=== PATIENT | male | born 1940 | race Caucasian/White ===

== ENCOUNTER → 2019-09-13 | Outpatient (CLI) | payer MEDICARE ==
--- NOTE | 2019-09-16 08:45 | US ---
EXAMINATION TYPE: US kidneys/renal and bladder DATE OF EXAM: 09/13/2019 COMPARISON: NONE CLINICAL HISTORY: Acute kidney failure, unspecified N17.9. RIVKA EXAM MEASUREMENTS: Right Kidney: 11.1 x 4.7 x 5.3 cm Left Kidney: 10.7 x 5.1 x 4.2 cm Post Void Residual Volume: 7.5 mL Right Kidney: Mild to moderate hydronephrosis. Left Kidney: Mild hydrodephrosis. Bladder: wnl Bilateral Jets seen: Yes Normal Post Void Residual: Yes No nephrolithiasis is seen. No masses are identified. The urinary bladder is anechoic. Bilateral ureteral jets are seen. IMPRESSION: Bilateral hydronephrosis right greater than left.
== END | disposition home or self-care (01) ==
LOC: RADUSWWP 10:52
PROVIDERS: ATTEND Internal Medicine Nephrology
DX: N13.30 Unspecified hydronephrosis (principal)
CPT/HCPCS: 76770

== ENCOUNTER → 2019-10-11 | Outpatient (CLI) | payer MEDICARE ==
--- NOTE | 2019-10-11 16:17 | CT ---
EXAMINATION TYPE: CT abdomen pelvis wo con DATE OF EXAM: 10/11/2019 COMPARISON: HISTORY: bilateral hydronephrosis CT DLP: 987 mGycm Examination of the solid and hollow viscera is limited given the lack of contrast. FINDINGS: LUNG BASES: No evidence for nodule. No evidence for infiltrate. LIVER/GB: The gallbladder is unremarkable. No space-occupying hepatic lesion. PANCREAS: No pancreatic mass identified. No inflammatory process seen. SPLEEN: No evidence for splenomegaly. No intrasplenic lesions seen. ADRENALS: No adrenal nodules identified. No evidence for thickening. KIDNEYS: Severe right-sided hydronephrosis secondary to a right UPJ calculus measuring 1.1 cm. Additi onal nonobstructing calculus lower pole right kidney measures 5 mm. There is moderate left-sided hydr onephrosis secondary to a left UPJ calculus measuring 1.2 cm. There is mild perinephric stranding and bilateral renal edema. Superimposed infection is difficult to exclude. Additional nonobstructing leni culi left kidney. BOWEL: Appendix has a normal appearance. No evidence of bowel obstruction. No inflammatory process. Lymph nodes: No evidence for adenopathy greater than 1 cm. Abdominal aorta: Atheromatous changes seen. No evidence for aneurysm. Genital organs: No significant abnormality. Other: No significant abnormality. IMPRESSION: 1. Bilateral hydronephrosis right greater than left secondary to UPJ calculi as discussed above.
== END | disposition home or self-care (01) ==
LOC: RADCTMAIN 15:40
PROVIDERS: ATTEND Urology
DX: N13.2 Hydronephrosis with renal and ureteral calculous obstruction (principal)
CPT/HCPCS: 74176

== ENCOUNTER → 2019-11-13 | Outpatient (CLI) | payer MEDICARE ==
[2019-11-13 09:31] LABS: Basophils # (A) 0.1 k/uL (0-0.2); Basophils % (A) 1 %; Eosinophils # (A) 0.1 k/uL (0-0.7); Eosinophils % (A) 3 %; HCT 46.9 % (39.0-53.0); HGB 14.9 gm/dL (13.0-17.5); Lymphocytes # (A) 1.7 k/uL (1.0-4.8); Lymphocytes % (A) 31 %; MCHC 31.9 g/dL (31.0-37.0); MCV 97.3 fL (80.0-100.0); Mean Platelet Volume 7.2; Monocytes # (A) 0.4 k/uL (0-1.0); Monocytes % (A) 7 %; Neutrophils # (A) 3.1 k/uL (1.3-7.7); Neutrophils % (A) 56 %; Platelet Count 232 k/uL (150-450); RBC 4.82 m/uL (4.30-5.90); RDW 12.7 % (11.5-15.5); WBC 5.5 k/uL (3.8-10.6)
[2019-11-13 09:42] LABS: INR 0.9 (<1.2)
[2019-11-13 09:43] LABS: Prothrombin Time 9.9 sec (9.0-12.0)
[2019-11-13 09:46] LABS: Calcium 9.5 mg/dL (8.4-10.2); Potassium 5.4 mmol/L (3.5-5.1)
== END | disposition home or self-care (01) ==
LOC: LABPAT 08:59
PROVIDERS: ATTEND Urology
DX: Z01.812 Encounter for preprocedural laboratory examination (principal); N20.0 Calculus of kidney; R31.29 Other microscopic hematuria; Z51.81 Encounter for therapeutic drug level monitoring; Z79.01 Long term (current) use of anticoagulants
CPT/HCPCS: 36415; 80048; 85025; 85610; 87086

== ENCOUNTER → 2019-11-14 | Outpatient (CLI) | payer MEDICARE | END | disposition home or self-care (01) | LOC: LABPAT 08:49 | PROVIDERS: ATTEND Anesthesiology | DX: Z01.818 Encounter for other preprocedural examination (principal) | CPT/HCPCS: 93005 ==

== ENCOUNTER 2019-11-20 06:07 | Observation (INO) | payer MEDICARE ==
[2019-11-13 10:32] VITALS: BMI 22.5
--- NOTE | 2019-11-19 16:44 | P.HPIHPCON ---
History of Present Illness H&P Date: 11/19/19 Chief Complaint: right sided ureteral calculi Mr. Pena is an 79 yo male with hx of right sided renal stone. She underwent a CT which showed a 18X10 mm stone in the proximal ureter and 4X5 mm stone in the lower pole. Of note the patient has a torturous proximal ureter. Making a ureteroscopy very challenging secondary to his anatomy. I discussed with him the option of percutaneous nephrolithotomy.. I discussed with him PCNL has the highest stone free rate but has highest complication risk. Discussed risk of bleeding and infection. Discussed risk of injury to nearby organ including liver,lung and bowel. also discussed risk from anesthesia which include but not limited to heart attack and stroke. He understood all the risk and agreed to proceed Consent for Procedure: I have explained the operation/procedure to the patient, including the risks, benefits, side effects, alternative therapies (including not receiving the proposed treatment or service), the likelihood of the patient achieving his/her goals, and potential recuperation problems for the procedure/sedation/analgesia, as well as any blood products, if indicated. I also explained to the patient the risks, benefits and side effects of the alternatives, as well as the risks related to not receiving the proposed procedure, care, treatment, or services. Past Medical History Past Medical History: Diabetes Mellitus, Hyperlipidemia, Osteoarthritis (OA), Prostate Disorder Additional Past Medical History / Comment(s): NEUROPATHY THERESA FEET, kidney stones, states sore left leg-hurt lifting a chilc History of Any Multi-Drug Resistant Organisms: None Reported Past Surgical History: Orthopedic Surgery, Tonsillectomy Additional Past Surgical History / Comment(s): RT FOOT SURGERY X2 (BONE REMOVED FOR INFECTION), THERESA CATARACTS . theresa nephrostolithotomy Past Anesthesia/Blood Transfusion Reactions: No Reported Reaction Smoking Status: Current every day smoker - Past Family History Sister(s) Family Medical History: Cancer Medications and Allergies Home Medications Medication Instructions Recorded Confirmed Type Multivitamins, Thera [Multivitamin] 1 tab PO DAILY 07/29/16 11/13/19 History RX: Aspirin 325 mg PO DAILY 07/29/16 11/13/19 History Simvastatin [Zocor] 20 mg PO HS 07/29/16 11/13/19 History glipiZIDE [Glucotrol] 5 mg PO TID-W/MEALS 07/29/16 11/13/19 History Insulin Glargine,Hum.rec.anlog 20 unit SQ HS 11/13/19 11/13/19 History [Franklyn Sinha] Allergies Allergy/AdvReac Type Severity Reaction Status Date / Time No Known Allergies Allergy Verified 11/13/19 10:22 Surgical - Exam - General well developed, well nourished, no distress, no pain - Respiratory normal expansion, normal respiratory effort - Abdomen Abdomen: soft, non tender, no distended - Psychiatric oriented to time, oriented to person, oriented to place Assessment and Plan Assessment: 79-year-old male, with a right-sided 18x10 mm proximal ureteral stone, and lower pole stone -OR for right-sided PCNL
[~2019-11-20 06:07] MED LIST: DEXAMETHASONE SOD PHOSPHATE 10 MG/ML 1 ML VIAL IV ONE; GENTAMICIN 120 MG in SODIUM CHLORIDE 0.9% 100 ML IVPB ONE; HYDROmorphone 0.5 MG/0.5 ML SYRINGE IVP PRN; LIDOCAINE 1% 20 ML VIAL (10MG/ML) FOR IV START INTRADERMA PRN; ONDANSETRON 4 MG/2 ML VIAL IVP ONE
--- NOTE | 2019-11-20 06:27 | XR ---
EXAMINATION TYPE: XR KUB DATE OF EXAM: 11/20/2019 COMPARISON: NONE HISTORY: Preop. Kidney stones. TECHNIQUE: 2 views FINDINGS: There are multiple calcifications over the kidneys. These measure up to 1.8 cm on the right side and 12 mm on the left side. There are bilateral ureteral stents. There is mild lumbar dextrosco liosis. Bowel gas pattern is normal. There is no evidence of free air. IMPRESSION: Multiple renal calculi. Nonacute abdomen.
[2019-11-20 06:55] LABS: Glucose,Whole Blood 158 mg/dL (75-99)
[2019-11-20] MEDS: LACTATED RINGERS 1,000 ML IV SCH (06:55)
[2019-11-20] MEDS ORDERED: SUCCINYLCHOLINE CHLORIDE 100 MG/5 ML SYR IV ONE (07:24)
[2019-11-20] MEDS ORDERED: PROPOFOL 10 MG/ML 20 ML VIAL IV ONE (07:24)
[2019-11-20] MEDS ORDERED: LIDOCAINE 1% INJ 10MG/ML (20 ML MDV) ONE (07:24)
[2019-11-20] MEDS ORDERED: MIDAZOLAM 2 MG/2 ML VIAL ONE (07:24)
[2019-11-20] MEDS ORDERED: fentaNYL (PF) 50 MCG/ML 2 ML AMP ONE (07:24)
[2019-11-20] MEDS ORDERED: IOPAMIDOL-370 50ML BTL MISCELLANE ONE (08:29)
[2019-11-20] MEDS ORDERED: LACTATED RINGERS 1,000 ML IV ONE ×3 (09:31→14:15)
[2019-11-20] MEDS ORDERED: MAG HYDROX/AL HYDROX/SIMETH 30 ML CUP PO PRN (11:16)
[2019-11-20] MEDS ORDERED: ACETAMINOPHEN TAB 325 MG TAB PO PRN (11:16)
[2019-11-20] MEDS ORDERED: ONDANSETRON 4 MG/2 ML VIAL IVP PRN (11:16)
[2019-11-20 11:35] LABS: Glucose,Whole Blood 114 mg/dL (75-99)
--- NOTE | 2019-11-20 14:13 | FL ---
EXAMINATION TYPE: FL Perc Nephrostomy New Access DATE OF EXAM: 11/20/2019 COMPARISON: CT 10/11/2019 HISTORY: Left ureteral calculus. PROCEDURE: Maximal barrier technique was utilized, hand hygiene obtained with soap and water and alcohol-based h and rub. The skin overlying the left kidney was localized using fluoroscopy and the overlying skin p repped and draped. Skin maria eugenia was made with a scalpel. Access was gained under fluoroscopy, following placement of a ureteral occlusion balloon by the referring clinician and instillation of air in the renal collecting system with a 21-gauge needle to the left kidney. A suitable posterior calyx was ch osen. A 0.018 inch wire was advanced. The access site was dilated , access site was upsized, safet y wire deployed and subsequently a sheath was advanced into the renal pelvis following dilation with balloon along the tract. The patient underwent nephrolithotomy by the referring clinician. The ministerio ent remained in stable condition without complication. The patient was discharged to observation in the care of anesthesia. 6 minutes 12 seconds fluoroscopy time, 2 intraoperative C-arm images document the procedure IMPRESSION: STATUS POST NEPHROSTOMY PLACEMENT FOR NEPHROLITHOTOMY WITH FLUOROSCOPIC GUIDANCE. THIS PROCEDURE PER FORMED BY THE UNDERSIGNED.
--- NOTE | 2019-11-20 15:54 | P.OP ---
Date of Procedure: 11/20/19 Preoperative Diagnosis: Left renal calculi Postoperative Diagnosis: Same Procedure(s) Performed: Left percutaneous nephrolithotomy, cystoscopy, left ureteral catheterization, antegrade nephrostogram, antegrade stent placement Implants: 4.8 Fr x 28 cm stent Anesthesia: ELIZABETHA Surgeon: Kristian Garcia Estimated Blood Loss (ml): 75 Pathology: other (left renal stone for analysis) Condition: stable Disposition: PACU Indications for Procedure: Mr. Pena is an 79 yo male with hx of bilateral nephrolithasis. He underwent a CT which showed a right sided 18X10 mm stone in the proximal ureter and 4X5 mm stone in the lower pole and left sided 1.1 cm proximal ureteral stone and 5 mm lower pole stone. Of note the patient has a torturous proximal ureter, and narrowing of the left UPJ. Making a ureteroscopy very challenging secondary to his anatomy. I discussed with him the option of percutaneous nephrolithotomy. I discussed with him PCNL has the highest stone free rate but has highest complication risk. Discussed risk of bleeding and infection. Discussed risk of injury to nearby organ including spleen, ,lung and bowel. also discussed risk from anesthesia which include but not limited to heart attack and stroke. He understood all the risk and agreed to proceed. We will proceed with left-sided PCNL today followed by right-sided PCNL in 6-8 weeks Operative Findings: Large stone in the renal pelvis, multiple smaller stone in the lower pole Description of Procedure: The patient was brought to the operating room, general anesthesia was induced. He was prepped and draped in sterile fashion and placed supine frog leg position. Cystoscopy. 22 sheath was inserted per urethra. The left ureteral orifice was visualized with the stent protruding from it. The stent was grasped and pulled to the meatus. Next a 0.035 sensor wire was advanced through the stent into the renal pelvis. The cystoscope was removed with wire in place. A 7 Fr baloon occluding catheter was passed over the wire and advanced to the renal pelvis, a pop catheter was placed in the bladder At this time the patient was placed in prone position, and prepped and draped in sterile fashion. the stones were visualized on fluoroscopy. At this time Dr Oro performed percutaneous access on the left kidney. Please see his dictation for his portion of procedure. Once access was obtained the The tract was dilated using the balloon dilators, Next a 30-Luxembourgish access sheath was advanced over the balloon. The balloon was removed with the sheath in place. Next a rigid nephroscope was inserted through the sheath and large stone was visualized in renal pelvis and multiple stones in the lower pole. The stone was broken up into smaller fragments using the ultrasound lithotripter. Stone fragments were removed using the grasper and sent for stone analysis. Repeat nephroscopy using the flexible cystoscope and the rigid nephroscope showed no additional fragments in the kidney. Using the flexible ureteroscope there were two fragments that measured approximately 1 mm at the UPJ, I attempted to pass the flexible ureteroscope past the narrowed UPJ but was unable to. I attempted to basket the stones but was not able to safely advance the basket past the narrowing. At this point the ureteroscope was withdrawn, and repeat nephroscopy demonstrated no injury to the UPJ. Repeat antegrade nephrostogram demonstrated no contrast extravasation or any additional filling defect. . Next a 4.8Fr x 28 cm stent was passed over the wire the distal curl was visualized on fluoroscopy in the bladder and the proximal curl was visualized using the nephroscope. The access sheath was removed. The percutaneous access site was closed using 3-0 Vicryl. The patient was awoken from anesthesia and taken to the recovery room in stable condition.
[2019-11-20] MEDS: HYDROmorphone 0.5 MG/0.5 ML SYRINGE IVP PRN ×2 (16:55→21:25)
[2019-11-20] MEDS: glipiZIDE 5 MG TAB PO SCH (16:55)
[2019-11-20] MEDS: HEPARIN SODIUM,PORCINE 5,000 UNIT/ML 1 ML VIAL SQ SCH (16:58)
[2019-11-20] MEDS: DEXTROSE 5%-0.45% NACL 1,000 ML IV SCH (16:58)
[2019-11-20 17:11] LABS: Glucose,Whole Blood 278 mg/dL (75-99)
[2019-11-20 20:34] LABS: Glucose,Whole Blood 276 mg/dL (75-99)
[2019-11-20] MEDS: ATORVASTATIN 10 MG TAB PO SCH (21:25)
[2019-11-20] MEDS: INSULIN DETEMIR (LEVEMIR) 100 UNIT/ML SYR SQ SCH (21:25)
[2019-11-20 21:32] LABS: HCT 35.2 % (39.0-53.0); MCH 31.6 pg (25.0-35.0); MCHC 32.3 g/dL (31.0-37.0); MCV 97.9 fL (80.0-100.0); Mean Platelet Volume 7.5; Platelet Count 198 k/uL (150-450); RDW 12.7 % (11.5-15.5); WBC 7.2 k/uL (3.8-10.6)
[2019-11-20 21:34] LABS: HGB 11.4 gm/dL (13.0-17.5)
[2019-11-20 21:58] LABS: Potassium 4.8 mmol/L (3.5-5.1)
[2019-11-21] MEDS: HEPARIN SODIUM,PORCINE 5,000 UNIT/ML 1 ML VIAL SQ SCH ×3 (00:52→17:20)
[2019-11-21] MEDS: DEXTROSE 5%-0.45% NACL 1,000 ML IV SCH ×2 (00:52→07:46)
[2019-11-21] MEDS: HYDROmorphone 0.5 MG/0.5 ML SYRINGE IVP PRN ×3 (01:21→20:16)
[2019-11-21 07:25] LABS: Glucose,Whole Blood 240 mg/dL (75-99)
[2019-11-21] MEDS: LACTATED RINGERS 1,000 ML IV SCH (07:46)
[2019-11-21] MEDS: glipiZIDE 5 MG TAB PO SCH ×3 (07:46→17:22)
[2019-11-21] MEDS: SODIUM CHLORIDE 0.9% 1,000 ML IV SCH ×2 (10:15→20:10)
[2019-11-21 12:10] LABS: Glucose,Whole Blood 210 mg/dL (75-99)
[2019-11-21] MEDS: INSULIN ASPART (NovoLOG) 100 UNIT/ML VIAL SQ SCH ×3 (12:40→21:45)
[2019-11-21 16:40] LABS: Glucose,Whole Blood 312 mg/dL (75-99)
[2019-11-21 20:56] VITALS: RESP 16
[2019-11-21 21:09] LABS: Glucose,Whole Blood 102 mg/dL (75-99)
[2019-11-21] MEDS ORDERED: SENNOSIDES 8.6 MG TAB PO PRN (21:16)
--- NOTE | 2019-11-21 21:23 | P.PN ---
Subjective Progress Note Date: 11/21/19 Principal diagnosis: bilateral renal calculi complaining of left flank and suprapubic pain. Denies any N/V, Objective - Vital Signs Vital signs: Vital Signs Temp 98.8 F 11/21/19 20:56 Pulse 68 11/21/19 20:56 Resp 16 11/21/19 20:56 BP 126/62 11/21/19 20:56 Pulse Ox 95 11/21/19 20:56 Intake & Output 11/21/19 11/21/19 11/22/19 06:59 18:59 06:59 Intake Total 110 Output Total 185 Balance -75 Intake: Oral 110 Output: Urine 185 Other: Voiding Method Indwelling Catheter Indwelling Catheter # Voids 1 - Constitutional General appearance: Present: mild distress - Gastrointestinal General gastrointestinal: Present: soft. Absent: distended, rigid, tenderness - Genitourinary Genitourinary Comment(s): left perc site with minimal leakage, (+) CVA Tenderness. - Psychiatric Psychiatric: Present: A&O x's 3 - Labs CBC & Chem 7: 11/20/19 20:56 11/20/19 20:56 Labs: Abnormal Lab Results - Last 24 Hours (Table) 11/20/19 11/20/19 11/21/19 Range/Units 20:56 20:56 07:13 RBC 3.60 L (4.30-5.90) m/uL Hgb 11.4 L D (13.0-17.5) gm/dL Hct 35.2 L (39.0-53.0) % Sodium 135 L (137-145) mmol/L POC Glucose (mg/dL) 240 H (75-99) mg/dL 11/21/19 11/21/19 11/21/19 Range/Units 11:58 16:39 21:07 RBC (4.30-5.90) m/uL Hgb (13.0-17.5) gm/dL Hct (39.0-53.0) % Sodium (137-145) mmol/L POC Glucose (mg/dL) 210 H 312 H 102 H (75-99) mg/dL Assessment and Plan Assessment: 79-year-old male, S/P L PCNL, having pain this am -Pain control -ambulate -Medicine consult for DM -keep pop until ambulatory -Potential discharge home tomorrow
[2019-11-21] MEDS: ATORVASTATIN 10 MG TAB PO SCH (21:44)
[2019-11-21] MEDS: INSULIN DETEMIR (LEVEMIR) 100 UNIT/ML SYR SQ SCH (21:45)
[2019-11-21 22:47] LABS: Basophils % (A) 0 %; Eosinophils % (A) 0 %; HCT 33.8 % (39.0-53.0); HGB 11.9 gm/dL (13.0-17.5); Lymphocytes # (A) 0.9 k/uL (1.0-4.8); Lymphocytes % (A) 10 %; MCH 33.7 pg (25.0-35.0); MCHC 35.3 g/dL (31.0-37.0); MCV 95.7 fL (80.0-100.0); Mean Platelet Volume 7.2; Monocytes # (A) 0.5 k/uL (0-1.0); Monocytes % (A) 6 %; Neutrophils # (A) 6.9 k/uL (1.3-7.7); Neutrophils % (A) 82 %; Platelet Count 137 k/uL (150-450); RBC 3.53 m/uL (4.30-5.90); RDW 12.8 % (11.5-15.5); WBC 8.4 k/uL (3.8-10.6)
[2019-11-21 23:01] LABS: African American GFR (CKD) >90 (>60 ml/min/1.73 sqM); Anion Gap 2 mmol/L; Blood Urea Nitrogen 18 mg/dL (9-20); Calcium 8.2 mg/dL (8.4-10.2); Carbon Dioxide 23 mmol/L (22-30); Chloride 110 mmol/L (98-107); Glucose 86 mg/dL (74-99); Non-African American GFR(CKD) 78 (>60 ml/min/1.73 sqM); Potassium 3.7 mmol/L (3.5-5.1); Sodium 135 mmol/L (137-145)
[2019-11-22] MEDS: HEPARIN SODIUM,PORCINE 5,000 UNIT/ML 1 ML VIAL SQ SCH ×2 (01:20→09:02)
[2019-11-22] MEDS: HYDROmorphone 0.5 MG/0.5 ML SYRINGE IVP PRN (01:20)
[2019-11-22 07:34] VITALS: BP 109/54; PULSE 60; TEMP 98.2
--- NOTE | 2019-11-22 07:45 | P.DS ---
Providers Date of admission: 11/22/19 05:46 Attending physician: Kristian Garcia MD Consults: 11/21/19 17:36 Consult Physician Routine Consulting Provider: Man Munoz Consult Reason/Comments: Medical management Do you want consulting provider notified?: Yes Primary care physician: Man Munoz [facility] Course: The patient is 79. He underwent a left percutaneous nephrostolithotomy to a large proximal ureteral stone. He had an antegrade nephrostogram and stent placement intraoperatively. He did not have a nephrostomy tube. He has done well postoperatively. He had too much pain to be discharged home yesterday but today feels much better. The urine is cleared nicely. His vital signs are stable. He is afebrile. I'll remove his Singh catheter. If he voids without difficulty and his pain remains under control then he can be discharged home. He will follow-up with next week. I'll give him a prescription of Center. Postoperative instructions been given. He understands these. His condition is good. Patient Condition at Discharge: Good Plan - Discharge Summary Discharge Rx Participant: Yes New Discharge Prescriptions: New HYDROcodone/APAP 5-325MG [Center 5-325] 1 tab PO Q4HR PRN #10 tab PRN Reason: Pain No Action Aspirin 325 mg PO DAILY glipiZIDE [Glucotrol] 5 mg PO TID-W/MEALS Simvastatin [Zocor] 20 mg PO HS Multivitamins, Thera [Multivitamin] 1 tab PO DAILY Insulin Glargine,Hum.rec.anlog [[place] Max Solostar] 20 unit SQ HS Discharge Medication List Aspirin 325 mg PO DAILY 07/29/16 [History] Multivitamins, Thera [Multivitamin] 1 tab PO DAILY 07/29/16 [History] Simvastatin [Zocor] 20 mg PO HS 07/29/16 [History] glipiZIDE [Glucotrol] 5 mg PO TID-W/MEALS 07/29/16 [History] Insulin Glargine,Hum.rec.anlog [[place] Max Solostar] 20 unit SQ HS 11/13/19 [History] HYDROcodone/APAP 5-325MG [Center 5-325] 1 tab PO Q4HR PRN #10 tab 01/31/20 [Rx] Follow up Appointment(s)/Referral(s): Kristian Garcia MD [STAFF PHYSICIAN] - 11/27/19 Discharge Disposition: HOME SELF-CARE
[2019-11-22 08:31] LABS: Glucose,Whole Blood 92 mg/dL (75-99)
[2019-11-22] MEDS: glipiZIDE 5 MG TAB PO SCH (09:02)
[2019-11-22] MEDS: INSULIN ASPART (NovoLOG) 100 UNIT/ML VIAL SQ SCH (09:02)
== END 2019-11-22 12:22 | disposition home or self-care (01) ==
LOC: OR 06:07 → 4SSUR 14:49 → OR 11-22 06:56
PROVIDERS: ADMIT Urology; ATTEND Urology
DX: N20.2 Calculus of kidney with calculus of ureter (principal); N13.8 Other obstructive and reflux uropathy; E78.5 Hyperlipidemia, unspecified; M19.90 Unspecified osteoarthritis, unspecified site; E11.42 Type 2 diabetes mellitus with diabetic polyneuropathy; F17.200 Nicotine dependence, unspecified, uncomplicated; Z79.82 Long term (current) use of aspirin; Z79.4 Long term (current) use of insulin; Z79.899 Other long term (current) drug therapy; Z87.438 Personal history of other diseases of male genital organs; Z98.890 Other specified postprocedural states; Z90.89 Acquired absence of other organs; Z98.42 Cataract extraction status, left eye; Z98.41 Cataract extraction status, right eye; Z97.2 Presence of dental prosthetic device (complete) (partial); Z96.0 Presence of urogenital implants; Z80.9 Family history of malignant neoplasm, unspecified
CPT/HCPCS: 86900; 86901; 80051; 80048; 82565; 84132; 85025; 85027; 86850; 82365; 50432; 74018; 50080; G0378; C2625; C1769 ×4; C2628 ×2; C1729 ×4; C1894; J2250; J1580; J1644 ×3; J0690; J2405; J2001; J3010; J0330; J2704; J1170 ×3; Q9967

== ENCOUNTER → 2020-04-22 | Outpatient (CLI) | payer MEDICARE ==
--- NOTE | 2020-04-22 09:33 | XR ---
EXAMINATION TYPE: XR KUB DATE OF EXAM: 04/22/2020 COMPARISON: NONE HISTORY: Pain TECHNIQUE: Single supine KUB image of the abdomen is obtained FINDINGS: Small bowel demonstrates no evidence for dilatation or air fluid levels. Gas and fecal material is seen in non-distended colon. No convincing evidence for pneumoperitoneum. Previous ureteral stents of the. Large bilateral calculi are visualized overlying the kidneys. [place] ing bowel content limits limited evaluation. The lung bases are clear. The osseous structures are intact. Moderate degenerative change lumbar spine with curvature convex to the right. IMPRESSION: 1. Overall nonobstructive bowel gas pattern.
[2020-04-22 18:42] LABS: African American GFR (CKD) 67.2 (60.0-200.0)
== END | disposition home or self-care (01) ==
LOC: LABWHC1 08:36
PROVIDERS: ATTEND Urology
DX: N20.1 Calculus of ureter (principal)
CPT/HCPCS: 36415; 74018; 82565; 84520

== ENCOUNTER → 2020-06-04 | Outpatient (CLI) | payer MEDICARE ==
--- NOTE | 2020-06-04 15:39 | US ---
EXAMINATION TYPE: US kidneys/renal and bladder DATE OF EXAM: 06/04/2020 COMPARISON: 09/13/2019 CLINICAL HISTORY: Calculus of kidney N20.0. EXAM MEASUREMENTS: Right Kidney: 10.8 x 4.5 x 4.3 cm Left Kidney: 11.0 x 5.8 x 4.6 cm Right Kidney: at least 3 echogenic foci, largest measuring 4mm Left Kidney: cyst measuring 1.6 x 1.3 x 1.4cm, echogenic foci measuring 0.4 x 0.5 x 0.4cm Bladder: wnl Bilateral Jets seen: Yes IMPRESSION: Bilateral nephrolithiasis with no hydronephrosis. Small left renal cyst noted.
== END | disposition home or self-care (01) ==
LOC: RADUSWWP 14:42
PROVIDERS: ATTEND Urology
DX: N28.1 Cyst of kidney, acquired (principal)
CPT/HCPCS: 76770

== ENCOUNTER 2023-12-13 13:29 | Inpatient (IN) | payer MEDICARE ==
[2023-12-13] MEDS ORDERED: VANCOMYCIN IV PER PHARMACY 1 EACH MISC MISCELLANE PRN (15:10)
[2023-12-13] MEDS ORDERED: NALOXONE 0.4 MG/ML 1 ML VIAL IV PRN (15:10)
[2023-12-13] MEDS ORDERED: HYDROmorphone 0.5 MG/0.5 ML SYRINGE IVP PRN (15:10)
--- NOTE | 2023-12-13 15:10 | ED ---
General Adult HPI - General Chief complaint: Wound/Laceration Stated complaint: Pain in L foot Time Seen by Provider: 12/13/23 14:11 Source: patient, RN notes reviewed Mode of arrival: ambulatory Limitations: no limitations - History of Present Illness Initial comments: 83-year-old male presents emergency department with chief complaint of left foot infection. Patient was sent in by Dr. Singh. He states has been dealing with this for several weeks. Patient states pain is increasing he is a known diabetic. Patient states he is scheduled for surgery in which she is supposed to have this amputated. - Related Data Home Medications Medication Instructions Recorded Confirmed Aspirin 325 mg PO DAILY 07/29/16 11/13/19 Multivitamins, Thera [Multivitamin] 1 tab PO DAILY 07/29/16 11/13/19 Simvastatin [Zocor] 20 mg PO HS 07/29/16 11/13/19 glipiZIDE [Glucotrol] 5 mg PO TID-W/MEALS 07/29/16 11/13/19 Insulin Glargine,Hum.rec.anlog 20 unit SQ HS 11/13/19 11/20/19 [Franklyn Sinha] Previous Rx's Medication Instructions Recorded HYDROcodone/APAP 5-325MG [[place] 1 tab PO Q4HR PRN #10 tab 11/22/19 5-325] Allergies Allergy/AdvReac Type Severity Reaction Status Date / Time No Known Allergies Allergy Verified 12/13/23 13:50 Review of Systems ROS Statement: Those systems with pertinent positive or pertinent negative responses have been documented in the HPI. ROS Other: All systems not noted in ROS Statement are negative. Past Medical History Past Medical History: Diabetes Mellitus, Hyperlipidemia, Osteoarthritis (OA) Additional Past Medical History / Comment(s): NEUROPATHY FEET. History of Any Multi-Drug Resistant Organisms: None Reported Past Surgical History: Orthopedic Surgery, Tonsillectomy Additional Past Surgical History / Comment(s): FOOT SURGERY X2 (BONE REMOVED FOR INFECTION), CATARACTS . Past Anesthesia/Blood Transfusion Reactions: No Reported Reaction Past Psychological History: No Psychological Hx Reported Past Alcohol Use History: Occasional Past Drug Use History: None Reported - Past Family History Sister(s) Family Medical History: Cancer General Exam Limitations: no limitations General appearance: alert, in no apparent distress Head exam: Present: atraumatic, normocephalic, normal inspection Respiratory exam: Present: normal lung sounds bilaterally. Absent: respiratory distress, wheezes, rales, rhonchi, stridor Cardiovascular Exam: Present: regular rate, normal rhythm, normal heart sounds. Absent: systolic murmur, diastolic murmur, rubs, gallop, clicks Extremities exam: Present: other ( left foot there is gangrenous changes distal foot lateral portion and fifth digit) Course Vital Signs 12/13/23 13:47 Temperature 98.3 F Pulse Rate 96 Respiratory 18 Rate Blood Pressure 139/68 O2 Sat by Pulse 97 Oximetry Medical Decision Making - Medical Decision Making Was pt. sent in by a medical professional or institution (, PA, VISUAL MANAGER, urgent care, hospital, or fdc...) When possible be specific @ -Dr. Singh Did you speak to anyone other than the patient for history (EMS, parent, family, police, friend...)? What history was obtained from this source @ -No Did you review nursing and triage notes (agree or disagree)? Why? @ -I reviewed and agree with nursing and triage notes Were old charts reviewed (outside hosp., previous admission, EMS record, old EKG, old radiological studies, urgent care reports/EKG's, fdc records)? Report findings @ -No old charts were reviewed Differential Diagnosis (chest pain, altered mental status, abdominal pain women, abdominal pain men, vaginal bleeding, weakness, fever, dyspnea, syncope, headache, dizziness, GI bleed, back pain, seizure, CVA, palpatations, mental health, musculoskeletal)? @ -[Gangrene, diabetic ulceration, osteomyelitis EKG interpreted by me (3pts min.). @ -None X-rays interpreted by me (1pt min.). @ -X left foot showing soft tissue changes, infection lateral foot CT interpreted by me (1pt min.). @ -None done U/S interpreted by me (1pt. min.). @ -None done What testing was considered but not performed or refused? (CT, X-rays, U/S, labs)? Why? @ -None What meds were considered but not given or refused? Why? @ -None Did you discuss the management of the patient with other professionals (professionals i.e. , PA, VISUAL MANAGER, lab, RT, psych nurse, social media executive, developer relations manager, teacher, employment officer, director of casework department)? Give summary @ -Dr. Munoz with admission with consults to infectious disease, vascular Was smoking cessation discussed for >3mins.? @ -No Was critical care preformed (if so, how long)? @ -No Were there social determinants of health that impacted care today? How? (Homelessness, low income, unemployed, alcoholism, drug addiction, transportation, low edu. Level, literacy, decrease access to med. care, halfway, rehab)? @ -No Was there de-escalation of care discussed even if they declined (Discuss DNR or withdrawal of care, Hospice)? DNR status @ -No What co-morbidities impacted this encounter? (DM, HTN, Smoking, COPD, CAD, Cancer, CVA, ARF, Chemo, Hep., AIDS, mental health diagnosis, sleep apnea, morbid obesity)? @ -Diabetes Was patient admitted / discharged? Hospital course, mention meds given and route, prescriptions, significant lab abnormalities, going to OR and other pertinent info. @ -Admitted for IV antibiotics, surgery for left foot gangrene, requiring amputation Undiagnosed new problem with uncertain prognosis? @ -No Drug Therapy requiring intensive monitoring for toxicity (Heparin, Nitro, Insulin, Cardizem)? @ -No Were any procedures done? @ -No Diagnosis/symptom? @ -Left foot diabetic infection, gangrene Acute, or Chronic, or Acute on Chronic? @ -Acute Uncomplicated (without systemic symptoms) or Complicated (systemic symptoms)? @ -Complicated Side effects of treatment? @ -No Exacerbation, Progression, or Severe Exacerbation? @ -No Poses a threat to life or bodily function? How? (Chest pain, [place], SC, pneumonia, PE, COPD, DKA, ARF, appy, cholecystitis, CVA, Diverticulitis, Homicidal, Suicidal, threat to staff... and all critical care pts) @ -Yes Disposition Clinical Impression: Diabetic infection of left foot, Gangrene of left foot Disposition: ADMITTED IP TO THIS [facility] Condition: Fair Referrals: Man Munoz DO [Primary Care Provider] - 1-2 days Time of Disposition: 14:37
[2023-12-13] MEDS: PIPERACILLIN-TAZOBACTAM 3.375 GM in SODIUM CHLORIDE 0.9% 100 ML IVPB STA (16:05)
[2023-12-13 16:21] LABS: Basophils # (A) 0.1 k/uL (0-0.2); Basophils % (A) 1 %; Eosinophils # (A) 0.1 k/uL (0-0.7); Eosinophils % (A) 1 %; HCT 36.4 % (39.0-53.0); HGB 11.7 gm/dL (13.0-17.5); Lymphocytes # (A) 1.8 k/uL (1.0-4.8); Lymphocytes % (A) 19 %; MCHC 32.1 g/dL (31.0-37.0); MCV 96.7 fL (80.0-100.0); Mean Platelet Volume 7.2; Monocytes # (A) 0.5 k/uL (0-1.0); Monocytes % (A) 5 %; Neutrophils # (A) 7.2 k/uL (1.3-7.7); Neutrophils % (A) 73 %; Platelet Count 518 k/uL (150-450); RBC 3.76 m/uL (4.30-5.90); RDW 12.6 % (11.5-15.5); WBC 9.8 k/uL (3.8-10.6)
--- NOTE | 2023-12-13 16:38 | XR ---
EXAMINATION TYPE: XR foot complete LT DATE OF EXAM: 12/13/2023 4:15 PM CLINICAL INDICATION:Male, 83 years old with history of infection; [facility] COMPARISON: None TECHNIQUE: XR foot complete LT examined in the AP, oblique, and lateral projections. FINDINGS: No evidence of any acute osseous pathology. There is subcutaneous gas around the fifth metatarsophala ngeal joint. Single area of loss of cortex on a single view of the fifth digit proximal phalanx with lucency projecting over the area on one projection. No additional areas identified. Severe atheroscle rosis of the arterial vasculature. Multifocal degeneration changes worse at the first digit metatarso phalangeal joint. IMPRESSION: At least one area within the cortex of the fifth digit proximal phalanx which could represent erosion in the setting of osteoarthritis versus summation artifact. Consider MRI forefoot for definitive johnathan luation.
[2023-12-13 17:08] LABS: ALT 33 U/L (4-49); AST 32 U/L (17-59); African American GFR (CKD) 65 (>60 ml/min/1.73 sqM); Albumin 3.4 g/dL (3.5-5.0); Alkaline Phosphatase 111 U/L (38-126); Anion Gap 6 mmol/L; Blood Urea Nitrogen 20 mg/dL (9-20); C Reactive Protein 4.7 mg/dL (<1.0); Calcium 8.8 mg/dL (8.4-10.2); Carbon Dioxide 24 mmol/L (22-30); Chloride 106 mmol/L (98-107); Glucose 207 mg/dL (74-99); Non-African American GFR(CKD) 56 (>60 ml/min/1.73 sqM); Potassium 4.8 mmol/L (3.5-5.1); Sodium 136 mmol/L (137-145); Total Bilirubin 0.4 mg/dL (0.2-1.3); Total Protein 6.1 g/dL (6.3-8.2)
[2023-12-13] MEDS: VANCOMYCIN 1,500 MG in SODIUM CHLORIDE 0.9% 500 ML 500 ML IVPB ONE (17:15)
[2023-12-13] MEDS: glipiZIDE 5 MG TAB PO SCH (18:00)
[2023-12-13 21:10] LABS: Glucose,Whole Blood 114 mg/dL (70-110)
[2023-12-13] MEDS: ATORVASTATIN 10 MG TAB PO SCH (21:31)
[2023-12-13] MEDS: INSULIN DETEMIR (LEVEMIR) 100 UNIT/ML SYR SQ SCH (21:31)
[2023-12-13] MEDS: AMPICILLIN-SULBACTAM 3 GM in SODIUM CHLORIDE 0.9% 100 ML IVPB SCH (21:45)
[2023-12-14] MEDS ORDERED: PIPERACILLIN-TAZOBACTAM 3.375 GM in SODIUM CHLORIDE 0.9% 100 ML IVPB SCH
[2023-12-14 07:12] LABS: African American GFR (CKD) 70 (>60 ml/min/1.73 sqM); Non-African American GFR(CKD) 61 (>60 ml/min/1.73 sqM)
[2023-12-14 07:16] LABS: Glucose,Whole Blood 53 mg/dL (70-110)
[2023-12-14 07:52] LABS: Glucose,Whole Blood 96 mg/dL (70-110)
[2023-12-14] MEDS: VANCOMYCIN 1,500 MG in SODIUM CHLORIDE 0.9% 500 ML 500 ML IVPB SCH (08:49)
--- NOTE | 2023-12-14 08:53 | P.CONS ---
History of Present Illness - Reason for Consult Consult date: 12/13/23 Diabetic foot infection Requesting physician: Fredrick Gilmore - Chief Complaint Left foot nonhealing wound and pain x weeks - History of Present Illness Patient is a 83-year-old male with a past medical history significant for diabetes mellitus hypertension osteoarthritis presented to the hospital for evaluation of left foot nonhealing wound and infection apparently the patient has been dealing with this wound for several weeks patient mention it started with a small blister and subsequently the area has opened up leading to this ulceration for the patient has been followed in the outpatient setting and apparently has received a course of antibiotic therapy however the patient did have worsening of his wound to the left foot lateral border with some disc oloration for the patient was evaluated by vascular surgeon Dr. Singh and advised to go to the hospital patient denies any fever or any chills and no fever was noticed on presentation to the hospital patient denies having any headache or URI symptoms, the patient denies having any chest pain shortness of breath or cough no nausea no vomiting no abdominal pain no diarrhea patient did have diabetic neuropathy denies significant sensation to the leg did have some pressure-like sensation and also noted to have some increasing swelling redness but no foul-smelling drainage patient had presentation to the hospital was afebrile white count was 9.8 creatinine is 1.21 liver isms are normal CRP was 4. 7 patient foot x-ray with a revision of the fifth proximal phalanx patient was started on vancomycin and Zosyn infectious disease was consulted for further management of antibiotic therapy Review of Systems Positive point and negatives has been mentioned in the HPI, complete review of systems was performed and all other systems are negative Past Medical History Past Medical History: Diabetes Mellitus, Hyperlipidemia, Osteoarthritis (OA) Additional Past Medical History / Comment(s): NEUROPATHY FEET. History of Any Multi-Drug Resistant Organisms: None Reported Past Surgical History: Orthopedic Surgery, Tonsillectomy Additional Past Surgical History / Comment(s): FOOT SURGERY X2 (BONE REMOVED FOR INFECTION), CATARACTS . Past Anesthesia/Blood Transfusion Reactions: No Reported Reaction Past Psychological History: No Psychological Hx Reported Past Alcohol Use History: Occasional Past Drug Use History: None Reported - Past Family History Sister(s) Family Medical History: Cancer Medications and Allergies Home Medications Medication Instructions Recorded Confirmed Type Simvastatin [Zocor] 20 mg PO DAILY 07/29/16 12/13/23 History glipiZIDE [Glucotrol] 5 mg PO TID-W/MEALS 07/29/16 12/13/23 History Insulin Glargine,Hum.rec.anlog 60 unit SQ HS 11/13/19 12/13/23 History [Franklyn Sinha] Aspirin EC [Ecotrin Low Dose] 81 mg PO DAILY 12/13/23 12/13/23 History Donepezil [Aricept] 5 mg PO HS 12/13/23 12/13/23 History Collagenase [Santyl Ointment] 1 applic TOPICAL DAILY #90 gm 12/19/23 Rx cefTRIAXone [Rocephin] 2,000 mg IVP Q24HR #40 each 12/19/23 Rx metroNIDAZOLE [Flagyl] 500 mg PO TID #90 tab 12/19/23 Rx Allergies Allergy/AdvReac Type Severity Reaction Status Date / Time No Known Allergies Allergy Verified 12/15/23 11:42 Physical Exam Vitals: Vital Signs Temp Pulse Resp BP Pulse Ox 12/13/23 13:47 98.3 F 96 18 139/68 97 Intake and Output 12/13/23 12/13/23 12/13/23 06:59 14:59 22:59 Other: Weight 88.904 kg GENERAL DESCRIPTION: Elderly male lying in bed, no distress. No tachypnea or accessory muscle of respiration use. HEENT: Shows Pallor , no scleral icterus. Oral mucous membrane is dry. No pharyngeal erythema or thrush NECK: Trachea central, no thyromegaly. LUNGS: Unlabored breathing. Clear to auscultation anteriorly. No wheeze or crane ladle person ckle. HEART: S1, S2, regular rate and rhythm. No loud murmur ABDOMEN: Soft, no tenderness , guarding or rigidity, no organomegaly EXTREMITIES: Left foot lateral border wound with slough tissue did have a necrotic left fifth toe some erythema SKIN: No rash, no masses palpable. NEUROLOGICAL: The patient is awake, alert, oriented x3, mood and affect normal. Results CBC & Chem 7: 12/18/23 06:06 12/18/23 06:06 Assessment and Plan (1) Diabetic infection of left foot Current Visit: Yes Status: Acute Code(s): E11.628 - TYPE 2 DIABETES MELLITUS WITH OTHER SKIN COMPLICATIONS; L08.9 - LOCAL INFECTION OF THE SKIN AND SUBCUTANEOUS TISSUE, UNSP SNOMED Code(s): 01313315 (2) Gangrene of left foot Current Visit: Yes Status: Acute Code(s): I96 - GANGRENE, NOT ELSEWHERE CLASSIFIED SNOMED Code(s): 70916280083044339 (3) Osteomyelitis, unspecified Current Visit: Yes Status: Acute Code(s): M86.9 - OSTEOMYELITIS, UNSPECIFIED SNOMED Code(s): 06931907 (4) Type 2 diabetes mellitus with foot ulcer Current Visit: Yes Status: Acute Code(s): E11.621 - TYPE 2 DIABETES MELLITUS WITH FOOT ULCER; L97.509 - NON-PRESSURE CHRONIC ULCER OTH PRT UNSP FOOT W UNSP SEVERITY SNOMED Code(s): 443501991 Plan: 1patient was in the hospital with extensive left diabetic foot infection that has been there for couple of weeks failing outpatient treatment both local and antibiotic therapy we will need to cover for the polymicrobial jorge associated with diabetic foot infection 2-await surgical debridement and deep cultures 3-we will keep the patient on vancomycin however discontinue Zosyn to decrease risk of nephrotoxicity and add Unasyn We will follow on clinical condition and cultures to further adjust medication if needed Thank you for this consultation we will follow the patient along with you Dictation was produced using [employer] dictation software. please excuse any grammatical, word or spelling errors. Time with Patient: Greater than 30
[2023-12-14] MEDS: HYDROcodone/APAP 5-325MG 1 EACH TAB PO PRN (08:55)
--- NOTE | 2023-12-14 10:06 | P.GSCN ---
History of Present Illness Consult date: 12/14/23 Reason for Consult: Left foot infection Requesting physician: Fredrick Gilmore History of present illness: This is a pleasant 83-year-old male with a history of diabetes mellitus, hyperlipidemia, osteoarthritis and left foot wound who has been following with Dr. Singh. He was seen in the office today with worsening wound, appeared infected with cellulitis and he was sent over to the emergency department for IV antibiotics and fifth toe amputation. Patient denies any fevers or chills. States that the redness has improved since yesterday. He states his pain is a 6 out of 10 of that left foot. He denies any shortness of breath, chest pain, abdominal pain, nausea or vomiting. He has been afebrile. Review of Systems A 14 point review systems was completed all pertinent positives and negatives as stated in the HPI. Past Medical History Past Medical History: Diabetes Mellitus, Hyperlipidemia, Osteoarthritis (OA) Additional Past Medical History / Comment(s): NEUROPATHY FEET. History of Any Multi-Drug Resistant Organisms: None Reported Past Surgical History: Orthopedic Surgery, Tonsillectomy Additional Past Surgical History / Comment(s): FOOT SURGERY X2 (BONE REMOVED FOR INFECTION), CATARACTS . Past Anesthesia/Blood Transfusion Reactions: No Reported Reaction Past Psychological History: No Psychological Hx Reported Smoking Status: Former smoker Past Alcohol Use History: Occasional Additional Past Alcohol Use History / Comment(s): SMOKES 1/2 PPD, SMOKING FOR OVER 20 YEARS. Past Drug Use History: None Reported - Past Family History Sister(s) Family Medical History: Cancer Medications and Allergies Home Medications Medication Instructions Recorded Confirmed Type Simvastatin [Zocor] 20 mg PO DAILY 07/29/16 12/13/23 History glipiZIDE [Glucotrol] 5 mg PO TID-W/MEALS 07/29/16 12/13/23 History Insulin Glargine,Hum.rec.anlog 60 unit SQ HS 11/13/19 12/13/23 History [Franklyn Sinha] Aspirin EC [Ecotrin Low Dose] 81 mg PO DAILY 12/13/23 12/13/23 History Donepezil [Aricept] 5 mg PO HS 12/13/23 12/13/23 History Sulfamethox-Tmp 800-160Mg [Bactrim 1 tab PO Q12HR 12/13/23 12/13/23 History DS 800-160 mg] Allergies Allergy/AdvReac Type Severity Reaction Status Date / Time No Known Allergies Allergy Verified 12/13/23 15:34 Surgical - Exam Vital Signs Temp Pulse Resp BP Pulse Ox 98.3 F 96 18 139/68 97 12/13/23 13:47 12/13/23 13:47 12/13/23 13:47 12/13/23 13:47 12/13/23 13:47 General appearance: The patient is alert, oriented, appears in no acute distress. HET: Head is normocephalic and atraumatic. Pupils are equal and reactive. Neck: Supple. Heart: Regular. Lungs: Equal expansion, normal respiratory effort. Abdomen: Soft, nontender, nondistended. Extremities: Bilateral palpable DP pulses, faint. Left foot with erythema, fifth toe and lateral aspect of left foot with necrotic tissue. Neurological: No focal deficits. Strength and sensation are grossly intact. Results - Labs 12/13/23 16:08 12/14/23 06:45 Abnormal Lab Results - Last 24 Hours (Table) 12/13/23 12/13/23 12/13/23 Range/Units 16:08 16:08 21:08 RBC 3.76 L (4.30-5.90) m/uL Hgb 11.7 L (13.0-17.5) gm/dL Hct 36.4 L (39.0-53.0) % Plt Count 518 H (150-450) k/uL Sodium 136 L (137-145) mmol/L Glucose 207 H (74-99) mg/dL POC Glucose (mg/dL) 114 H (70-110) mg/dL C-Reactive Protein 4.7 H (<1.0) mg/dL Total Protein 6.1 L (6.3-8.2) g/dL Albumin 3.4 L (3.5-5.0) g/dL 12/14/23 Range/Units 07:15 RBC (4.30-5.90) m/uL Hgb (13.0-17.5) gm/dL Hct (39.0-53.0) % Plt Count (150-450) k/uL Sodium (137-145) mmol/L Glucose (74-99) mg/dL POC Glucose (mg/dL) 53 L (70-110) mg/dL C-Reactive Protein (<1.0) mg/dL Total Protein (6.3-8.2) g/dL Albumin (3.5-5.0) g/dL Diabetes panel 12/13/23 12/14/23 Range/Units 16:08 06:45 Sodium 136 L (137-145) mmol/L Potassium 4.8 (3.5-5.1) mmol/L Chloride 106 (98-107) mmol/L Carbon Dioxide 24 (22-30) mmol/L BUN 20 (9-20) mg/dL Creatinine 1.21 1.13 (0.66-1.25) mg/dL Glucose 207 H (74-99) mg/dL Calcium 8.8 (8.4-10.2) mg/dL AST 32 (17-59) U/L ALT 33 (4-49) U/L Alkaline Phosphatase 111 (38-126) U/L Total Protein 6.1 L (6.3-8.2) g/dL Albumin 3.4 L (3.5-5.0) g/dL Calcium panel 12/13/23 Range/Units 16:08 Calcium 8.8 (8.4-10.2) mg/dL Albumin 3.4 L (3.5-5.0) g/dL Pituitary panel 12/13/23 12/14/23 Range/Units 16:08 06:45 Sodium 136 L (137-145) mmol/L Potassium 4.8 (3.5-5.1) mmol/L Chloride 106 (98-107) mmol/L Carbon Dioxide 24 (22-30) mmol/L BUN 20 (9-20) mg/dL Creatinine 1.21 1.13 (0.66-1.25) mg/dL Glucose 207 H (74-99) mg/dL Calcium 8.8 (8.4-10.2) mg/dL Adrenal panel 12/13/23 12/14/23 Range/Units 16:08 06:45 Sodium 136 L (137-145) mmol/L Potassium 4.8 (3.5-5.1) mmol/L Chloride 106 (98-107) mmol/L Carbon Dioxide 24 (22-30) mmol/L BUN 20 (9-20) mg/dL Creatinine 1.21 1.13 (0.66-1.25) mg/dL Glucose 207 H (74-99) mg/dL Calcium 8.8 (8.4-10.2) mg/dL Total Bilirubin 0.4 (0.2-1.3) mg/dL AST 32 (17-59) U/L ALT 33 (4-49) U/L Alkaline Phosphatase 111 (38-126) U/L Total Protein 6.1 L (6.3-8.2) g/dL Albumin 3.4 L (3.5-5.0) g/dL - Imaging Comments: Left foot x-ray: At least 1 area within the cortex of the fifth digit proximal phalanx which could represent erosion in the setting of osteoarthritis versus summation artifact. Consider MRI for follow-up for definitive evaluation. Assessment and Plan Assessment: 1. Left fifth toe infected wound 2. Cellulitis 3. Diabetes mellitus Plan: 1. Infectious disease on consultation, appreciate recommendations for IV antibiotics 2. Plan for left fifth toe amputation Monday 3. N.p.o. after midnight 4. Heel walk weightbearing only Thank you for this consultation, we will continue to follow. The impression and plan of care has been dictated as directed. Dr. Singh I performed a history and examination of this patient, discussed the same with the dictator. I agree with the dictator's note ,documented as a scribe. Any additional findings or plans will be noted.
[2023-12-14 11:39] LABS: Glucose,Whole Blood 173 mg/dL (70-110)
--- NOTE | 2023-12-14 15:00 | US ---
EXAMINATION TYPE: US arterial LE multi level DATE OF EXAM: 12/14/2023 10:46 AM CLINICAL INDICATION: Male, 83 years old with history of Left 5th toe non-healing wound; Left 5th toe black History of: Smoker: Previous Hypertension: No Diabetic: Yes Hyperlipidemia: No TIA/CVA: No Previous Vascular Surgery: No CAD: No ME: No Doppler Waveforms: Right: Multiphasic Left: Multiphasic Right Brachial Pressure: Deferred due to IV site Left Brachial Pressure: 134 Ankle-Brachial Indices: Right: 0.5 Left: 0.7 Toe Brachial Indices: Right: 0.3 Left: 0.0 IMPRESSION: 1. Findings suggestive of moderate peripheral atherosclerotic disease of the right lower extremity. 2. Findings suggest mild peripheral atherosclerotic disease of the left lower extremity
--- NOTE | 2023-12-14 15:01 | P.PN ---
Subjective Progress Note Date: 12/14/23 Principal diagnosis: Reason for follow-up is left diabetic foot wound and infection Patient is a 83-year-old male with a past medical history significant for diabetes mellitus hypertension osteoarthritis presented to the hospital for evaluation of left foot nonhealing wound and infection, patient diagnosed with extensive wound to the left foot with some necrotic changes in this patient with underlying history of diabetes mellitus. On today's evaluation that is 12/14/2023,the patient denies any fever or any chills, patient is breathing comfortably on room air, the patient denies chest pain shortness of breath and no significant cough, patient denies abdominal p ain, no nausea vomiting or diarrhea. Patient denies any worsening pain to the left foot area. Patient did have a creatinine 1.13 no CBC was done today Objective - Vital Signs Vital signs: Vital Signs Temp 98.0 F 12/14/23 11:35 Pulse 69 12/14/23 11:35 Resp 16 12/14/23 11:35 BP 154/78 12/14/23 11:35 Pulse Ox 97 12/14/23 11:35 FiO2 Intake & Output 12/13/23 12/14/23 12/14/23 18:59 06:59 18:59 Intake Total 740 Balance 740 Weight 88.904 kg 88.904 kg Intake: Intake, IV Titration 200 Amount Ampicillin-Sulbactam 3 gm 200 In Sodium Chloride 0.9% 100 ml @ 200 mls/hr IVPB Q6H [facility] Rx#:[id number] Oral 540 Other: Voiding Method Toilet Toilet # Voids 3 - Exam GENERAL DESCRIPTION: An elderly male lying in bed in no distress RESPIRATORY SYSTEM: Unlabored breathing , decreased breath sounds at bases HEART: S1 S2 regular rate and rhythm , ABDOMEN: Soft , no tenderness EXTREMITIES: Left foot lateral border wound with necrotic left fifth toe - Labs CBC & Chem 7: 12/13/23 16:08 12/14/23 06:45 Labs: Abnormal Lab Results - Last 24 Hours (Table) 12/13/23 12/13/23 12/13/23 Range/Units 16:08 16:08 21:08 RBC 3.76 L (4.30-5.90) m/uL Hgb 11.7 L (13.0-17.5) gm/dL Hct 36.4 L (39.0-53.0) % Plt Count 518 H (150-450) k/uL Sodium 136 L (137-145) mmol/L Glucose 207 H (74-99) mg/dL POC Glucose (mg/dL) 114 H (70-110) mg/dL C-Reactive Protein 4.7 H (<1.0) mg/dL Total Protein 6.1 L (6.3-8.2) g/dL Albumin 3.4 L (3.5-5.0) g/dL 12/14/23 12/14/23 Range/Units 07:15 11:38 RBC (4.30-5.90) m/uL Hgb (13.0-17.5) gm/dL Hct (39.0-53.0) % Plt Count (150-450) k/uL Sodium (137-145) mmol/L Glucose (74-99) mg/dL POC Glucose (mg/dL) 53 L 173 H (70-110) mg/dL C-Reactive Protein (<1.0) mg/dL Total Protein (6.3-8.2) g/dL Albumin (3.5-5.0) g/dL Assessment and Plan (1) Gangrene of toe of left foot Current Visit: Yes Status: Acute Code(s): I96 - GANGRENE, NOT ELSEWHERE CLASSIFIED SNOMED Code(s): 86060179431867844 (2) Diabetic infection of left foot Current Visit: Yes Status: Acute Code(s): E11.628 - TYPE 2 DIABETES MELLITUS WITH OTHER SKIN COMPLICATIONS; L08.9 - LOCAL INFECTION OF THE SKIN AND SUBCUTANEOUS TISSUE, UNSP SNOMED Code(s): 35790521 (3) Gangrene of left foot Current Visit: Yes Status: Acute Code(s): I96 - GANGRENE, NOT ELSEWHERE CLASSIFIED SNOMED Code(s): 40436743979270001 Plan: 1patient was in the hospital with extensive left diabetic foot infection that has been there for couple of weeks failing outpatient treatment both local and antibiotic therapy we will need to cover for the polymicrobial jorge associated with diabetic foot infection 2-patient has been eval by vascular surgery planning for amputation of the left fifth toe tomorrow morning 3-patient to continue with vancomycin and Unasyn while waiting for the culture to finalize Dictation was produced using dragon dictation software. please excuse any grammatical, word or spelling errors. Time with Patient: Less than 30
[2023-12-14 17:06] LABS: Glucose,Whole Blood 186 mg/dL (70-110)
[2023-12-14 20:09] LABS: Glucose,Whole Blood 172 mg/dL (70-110)
[2023-12-14] MEDS ORDERED: DEXTROSE 50% SYRINGE 50 ML IVP PRN ×2 (21:36)
--- NOTE | 2023-12-14 21:47 | P.HPIM ---
History of Present Illness H&P Date: 12/14/23 Chief Complaint: Left foot infection Patient is a 83-year-old male with a past medical history of hypertension, hyperlipidemia, diabetes type 2 insulin-dependent, osteoarthritis and peripheral neuropathy and prior history of smoking was sent from Dr. Singh's office due to left foot infection. Patient has been having left foot diabetic wound which is nonhealing for several weeks. Patient received antibiotic course as an outpatient however it wound is getting worse and extending to the left lateral foot with some discoloration. Patient otherwise denies any complaints of fever or chills. No complaints of nausea or vomiting. No cough or sputum production. No chest pain or shortness of breath. No headache or dizziness or lightheadedness. Foot x-ray showed at least 1 area within the cortex of the fifth digit proximal phalanx which could represent erosion in the setting of osteoarthritis versus summation artifact. Consider MRI foot for definitive evaluation. Laboratory data showed WBC 9.8 hemoglobin 11.7 and platelets 518 Sodium 136 potassium 4.8 chloride 106 bicarb is 24 BUN 20 and creatinine 1.21 and a blood sugar of 207 Alk phos 111, CRP 4.7 and albumin 3.4 Patient was initially started on Zosyn and vancomycin. Lower extremity ultrasound arterial showed findings suggestive of moderate peripheral atherosclerotic disease of the right lower extremity. Mild peripheral atherosclerotic disease of the left lower extremity. Review of Systems Constitutional: Patient denies any fever or chills . no Generalized weakness. Abdomen: Patient denied any nausea or vomiting or abd. pain Cardiovascular: Patient denies any chest pain or short of breath no palpitations. Respiratory: patient denied any cough . no sputum production. No shortness of breath Neurologic: Patient denied any numbness or tingling or headache. Musculoskeletal: Patient denies any complaints of joint swelling or deformity. Skin: Left foot discoloration and infection Psychiatric: Negative Endocrine: No heat or cold intolerance. No recent weight gain. Genitourinary: No dysuria or hematuria. All other 14 point ROS negative except the above Past Medical History Past Medical History: Diabetes Mellitus, Hyperlipidemia, Osteoarthritis (OA) Additional Past Medical History / Comment(s): NEUROPATHY FEET. History of Any Multi-Drug Resistant Organisms: None Reported Past Surgical History: Orthopedic Surgery, Tonsillectomy Additional Past Surgical History / Comment(s): FOOT SURGERY X2 (BONE REMOVED FOR INFECTION), CATARACTS . Past Anesthesia/Blood Transfusion Reactions: No Reported Reaction Past Psychological History: No Psychological Hx Reported Smoking Status: Former smoker Past Alcohol Use History: Occasional Additional Past Alcohol Use History / Comment(s): SMOKES 1/2 PPD, SMOKING FOR OVER 20 YEARS. Past Drug Use History: None Reported - Past Family History Sister(s) Family Medical History: Cancer Medications and Allergies Home Medications Medication Instructions Recorded Confirmed Type Simvastatin [Zocor] 20 mg PO DAILY 07/29/16 12/13/23 History glipiZIDE [Glucotrol] 5 mg PO TID-W/MEALS 07/29/16 12/13/23 History Insulin Glargine,Hum.rec.anlog 60 unit SQ HS 11/13/19 12/13/23 History [[place] [facility]] Aspirin EC [Ecotrin Low Dose] 81 mg PO DAILY 12/13/23 12/13/23 History Donepezil [Aricept] 5 mg PO HS 12/13/23 12/13/23 History Sulfamethox-Tmp 800-160Mg [Bactrim 1 tab PO Q12HR 12/13/23 12/13/23 History DS 800-160 mg] Allergies Allergy/AdvReac Type Severity Reaction Status Date / Time No Known Allergies Allergy Verified 12/13/23 15:34 Physical Exam Vitals: Vital Signs Temp Pulse Pulse Pulse Resp BP BP 12/14/23 07:12 98.1 F 68 16 128/58 12/14/23 02:00 97.9 F 75 16 142/82 12/13/23 21:39 97.9 F 56 L 16 149/83 12/13/23 21:00 56 L 16 12/13/23 20:55 98.3 F 63 18 168/85 12/13/23 13:47 98.3 F 96 18 139/68 Pulse Ox 12/14/23 07:12 94 L 12/14/23 02:00 95 12/13/23 21:39 100 12/13/23 21:00 12/13/23 20:55 100 12/13/23 13:47 97 Intake and Output 12/13/23 12/14/23 12/14/23 22:59 06:59 14:59 Intake Total 740 Balance 740 Intake: Intake, IV Titration 200 Amount Ampicillin-Sulbactam 3 gm 200 In Sodium Chloride 0.9% 100 ml @ 200 mls/hr IVPB Q6H [facility] Rx#:[id number] Oral 540 Other: Voiding Method Toilet # Voids 3 Weight 88.904 kg PHYSICAL EXAMINATION: Patient is lying in the bed comfortably, no acute distress, awake alert and oriented.. HEENT: Normocephalic. Neck is supple. Pupils reactive. Nostrils clear. Oral cavity is moist. Neck reveals no JVD, carotid bruits, or thyromegaly. CHEST EXAMINATION: Trachea is central. Symmetrical expansion. Lung oden clear to auscultation and percussion. CARDIAC: Normal S1, S2 with no gallops. No murmurs ABDOMEN: Soft. Bowel sounds present. Nontender. No organomegaly. No abdominal bruits. Extremities: reveal no edema. No clubbing or cyanosis Neurologically awake, alert, oriented x3 with well-coordinated movements. No focal deficits noted Skin: No rash. Extensive left foot infection on the lateral aspect and fifth toe discoloration with surrounding redness. Psychiatric: Coperative. Nonsuicidal, Musculoskeletal: No joint swelling or deformity. Normal range of motion. Results CBC & Chem 7: 12/13/23 16:08 12/14/23 06:45 Labs: Abnormal Lab Results - Last 24 Hours (Table) 12/13/23 12/13/23 12/13/23 Range/Units 16:08 16:08 21:08 RBC 3.76 L (4.30-5.90) m/uL Hgb 11.7 L (13.0-17.5) gm/dL Hct 36.4 L (39.0-53.0) % Plt Count 518 H (150-450) k/uL Sodium 136 L (137-145) mmol/L Glucose 207 H (74-99) mg/dL POC Glucose (mg/dL) 114 H (70-110) mg/dL C-Reactive Protein 4.7 H (<1.0) mg/dL Total Protein 6.1 L (6.3-8.2) g/dL Albumin 3.4 L (3.5-5.0) g/dL 12/14/23 Range/Units 07:15 RBC (4.30-5.90) m/uL Hgb (13.0-17.5) gm/dL Hct (39.0-53.0) % Plt Count (150-450) k/uL Sodium (137-145) mmol/L Glucose (74-99) mg/dL POC Glucose (mg/dL) 53 L (70-110) mg/dL C-Reactive Protein (<1.0) mg/dL Total Protein (6.3-8.2) g/dL Albumin (3.5-5.0) g/dL Thrombosis Risk Factor Assmnt - DVT/VTE Prophylaxis DVT/VTE Prophylaxis: Pharmacologic Prophylaxis ordered Assessment and Plan Assessment: Left diabetic foot infection at the fifth toe and lateral foot. Failed outp atient antibiotic therapy Hyperglycemia with uncontrolled diabetes type 2 insulin-dependent. Hyperlipidemia Osteoarthritis Mild cognitive impairment DVT prophylaxis with heparin subcu Prior history of smoking Plan: Patient will be continued vancomycin and Unasyn. Zosyn has been discontinued. Patient is scheduled for left fifth toe amputation on Monday. Currently with pain management, encourage incentive spirometry. Start back on home insulin regimen and glipizide will be on hold while in the hospital. Started on insulin sliding scale for better blood sugar control. Follow-up A1c level. Follow-up CBC and BMP tomorrow. ID and vascular surgery was consulted. Arterial duplex of the lower extremity was done, report reviewed. Time with Patient: Greater than 30
[2023-12-14] MEDS: HEPARIN SODIUM,PORCINE 5,000 UNIT/ML 1 ML VIAL SQ SCH (23:29)
[2023-12-15 08:00] LABS: Glucose,Whole Blood 79 mg/dL (70-110)
[2023-12-15] MEDS: INSULIN ASPART (NovoLOG) 100 UNIT/ML VIAL SQ SCH (08:13)
[2023-12-15 08:53] LABS: African American GFR (CKD) 74 (>60 ml/min/1.73 sqM); Anion Gap 7 mmol/L; Blood Urea Nitrogen 15 mg/dL (9-20); Calcium 8.6 mg/dL (8.4-10.2); Carbon Dioxide 23 mmol/L (22-30); Chloride 109 mmol/L (98-107); Glucose 67 mg/dL (74-99); Non-African American GFR(CKD) 64 (>60 ml/min/1.73 sqM); Potassium 4.6 mmol/L (3.5-5.1); Sodium 139 mmol/L (137-145)
[2023-12-15 09:17] LABS: Basophils # (A) 0.1 k/uL (0-0.2); Basophils % (A) 1 %; Eosinophils # (A) 0.1 k/uL (0-0.7); Eosinophils % (A) 1 %; HCT 35.7 % (39.0-53.0); HGB 11.4 gm/dL (13.0-17.5); Lymphocytes # (A) 1.5 k/uL (1.0-4.8); Lymphocytes % (A) 16 %; MCH 30.4 pg (25.0-35.0); MCHC 31.8 g/dL (31.0-37.0); MCV 95.5 fL (80.0-100.0); Mean Platelet Volume 7.4; Monocytes # (A) 0.7 k/uL (0-1.0); Monocytes % (A) 8 %; Neutrophils # (A) 6.7 k/uL (1.3-7.7); Neutrophils % (A) 73 %; Platelet Count 439 k/uL (150-450); RBC 3.73 m/uL (4.30-5.90); RDW 12.9 % (11.5-15.5); WBC 9.2 k/uL (3.8-10.6)
[2023-12-15 11:59] LABS: Glucose,Whole Blood 84 mg/dL (70-110)
[2023-12-15] MEDS: LACTATED RINGERS 1,000 ML IV SCH (12:00)
[2023-12-15] MEDS: ONDANSETRON 4 MG/2 ML VIAL IVP PRN (12:05)
[2023-12-15] MEDS ORDERED: PROPOFOL 10 MG/ML 20 ML VIAL IV ONE (12:45)
[2023-12-15] MEDS ORDERED: fentaNYL (PF) 50 MCG/ML 2 ML AMP ONE (12:45)
[2023-12-15] MEDS ORDERED: KETAMINE HCL IN 0.9 % NACL 50 MG/5 ML SYRINGE ONE (12:45)
[2023-12-15] MEDS ORDERED: MIDAZOLAM 2 MG/2 ML VIAL ONE (12:45)
--- NOTE | 2023-12-15 13:35 | P.OP ---
Date of Procedure: 12/15/23 Description of Procedure: SURGEON: Ofe Singh DO MECHATRONICS TECHNICIAN: None PREOPERATIVE DIAGNOSIS: Infected left fifth diabetic foot ulceration, fifth toe gangrene. POSTOPERATIVE DIAGNOSIS: Same. OPERATION: Left fifth toe amputation. ANESTHESIA: Sedation ESTIMATED BLOOD LOSS: 10 cc SPECIMENS REMOVED: left fifth toe for disposal, 5th toe culture COMPLICATIONS: none OPERATIVE FINDINGS: The patient is an 83-year-old male with diabetes who has had a worsening wound of his left fifth toe who presented initially to the office was sent over the hospital for antibiotic and intervention in regards to his gangrenous toe and erythema surrounding. The plan is to go for to the fifth toe amputation. Risk and benefits were discussed. He similar symptoms like to proceed. DESCRIPTION OF PROCEDURE: This patient was brought to the operating room, and given local and IV sedation. The operative foot was prepped and draped in sterile manner. An incision was made at the base of the fifth toe and surrounding tissue of necrosis, it was deepened to skin and fascia on plantar and dorsal aspect and down to the metatarsal. There was a pocket of purulent drainage encountered and this was cultured. Dissection was carried down to the metatarsal and the metatarsal was transected with a bone cutters at about the mid to proximal shaft. The tendons were divided in plantar and dorsal aspects. The fifth toe was removed. Bleeding was controlled with electrocautery. Base of the wound looked clean, and the wound was copiously irrigated with saline. Rongeur was used to smooth the bone. Hemostasis was well controlled and wet-to-dry dressing was applied. The patient tolerated the procedure well.
--- NOTE | 2023-12-15 14:59 | P.PN ---
Subjective Progress Note Date: 12/15/23 Principal diagnosis: Reason for follow-up is left diabetic foot wound and infection Patient is a 83-year-old male with a past medical history significant for diabetes mellitus hypertension osteoarthritis presented to the hospital for evaluation of left foot nonhealing wound and infection, patient diagnosed with extensive wound to the left foot with some necrotic changes in this patient with underlying history of diabetes mellitus. On today's evaluation that is 12/15/2023,the patient remains to be afebrile, patient is on room air not requiring supplemental oxygen and denies any shortness of breath no chest pain or cough.Patient denies having any nausea or vomiting, no abdominal pain and no diarrhea has been reported denies worsening pain to the left foot currently waiting for surgery. Patient did have a white count of 9.2, creatinine 1.08 blood cultures pending Objective - Vital Signs Vital signs: Vital Signs Temp 98.5 F 12/15/23 11:46 Pulse 74 12/15/23 11:46 Resp 17 12/15/23 11:46 BP 153/84 12/15/23 11:46 Pulse Ox 97 12/15/23 11:46 FiO2 Intake & Output 12/14/23 12/15/23 12/15/23 18:59 06:59 18:59 Intake Total 1200 Output Total 200 1000 1000 Balance -200 200 -1000 Intake: Intake, IV Titration 700 Amount Ampicillin-Sulbactam 3 gm 200 In Sodium Chloride 0.9% 100 ml @ 200 mls/hr IVPB Q6H [facility] Rx#:[id number] Vancomycin 1,500 mg In 500 Sodium Chloride 0.9% 500 ml 500 ml @ 167 mls/hr IVPB Q16H [facility] Rx#: [id number] Oral 500 Output: Urine 200 1000 1000 Other: Voiding Method Toilet Toilet - Exam GENERAL DESCRIPTION: An elderly male lying in bed in no distress RESPIRATORY SYSTEM: Unlabored breathing , decreased breath sounds at bases HEART: S1 S2 regular rate and rhythm , ABDOMEN: Soft , no tenderness EXTREMITIES: Left foot lateral border wound with necrotic left fifth toe - Labs CBC & Chem 7: 12/15/23 07:52 12/15/23 07:52 Labs: Abnormal Lab Results - Last 24 Hours (Table) 12/14/23 12/14/23 12/15/23 Range/Units 17:05 20:06 07:52 RBC (4.30-5.90) m/uL Hgb (13.0-17.5) gm/dL Hct (39.0-53.0) % Chloride 109 H (98-107) mmol/L Glucose 67 L (74-99) mg/dL POC Glucose (mg/dL) 186 H 172 H (70-110) mg/dL Hemoglobin A1c (<=6.0) % 12/15/23 12/15/23 Range/Units 07:52 07:52 RBC 3.73 L (4.30-5.90) m/uL Hgb 11.4 L (13.0-17.5) gm/dL Hct 35.7 L (39.0-53.0) % Chloride (98-107) mmol/L Glucose (74-99) mg/dL POC Glucose (mg/dL) (70-110) mg/dL Hemoglobin A1c 9.5 H (<=6.0) % Microbiology - Last 24 Hours (Table) 12/13/23 15:35 Blood Culture - Preliminary Blood Assessment and Plan (1) Gangrene of toe of left foot Current Visit: Yes Status: Acute Code(s): I96 - GANGRENE, NOT ELSEWHERE CLASSIFIED SNOMED Code(s): 31309134785665205 (2) Diabetic infection of left foot Current Visit: Yes Status: Acute Code(s): E11.628 - TYPE 2 DIABETES MELLITUS WITH OTHER SKIN COMPLICATIONS; L08.9 - LOCAL INFECTION OF THE SKIN AND SUBCUTANEOUS TISSUE, UNSP SNOMED Code(s): 42075243 (3) Gangrene of left foot Current Visit: Yes Status: Acute Code(s): I96 - GANGRENE, NOT ELSEWHERE CLASSIFIED SNOMED Code(s): 95317579753302938 Plan: 1patient was in the hospital with extensive left diabetic foot infection that has been there for couple of weeks failing outpatient treatment both local and antibiotic therapy we will need to cover for the polymicrobial jorge associated with diabetic foot infection 2-patient currently waiting for amputation of the left fifth toe and culture this afternoon 3-patient to continue with vancomycin and Unasyn while waiting for the culture to finalize and monitor clinical course closely Dictation was produced using [employer] dictation software. please excuse any grammatical, word or spelling errors. Time with Patient: Less than 30
[2023-12-15 17:17] LABS: Glucose,Whole Blood 66 mg/dL (70-110)
[2023-12-15 17:46] LABS: Glucose,Whole Blood 78 mg/dL (70-110)
[2023-12-15 19:59] LABS: Glucose,Whole Blood 149 mg/dL (70-110)
--- NOTE | 2023-12-15 22:24 | P.PN ---
Subjective Progress Note Date: 12/15/23 Patient is a 83-year-old male with a past medical history of hypertension, hyperlipidemia, diabetes type 2 insulin-dependent, osteoarthritis and peripheral neuropathy and prior history of smoking was sent from Dr. Singh's office due to left foot infection. Patient has been having left foot diabetic wound which is nonhealing for several weeks. Patient received antibiotic course as an outpatient however it wound is getting worse and extending to the left lateral foot with some discoloration. Patient otherwise denies any complaints of fever or chills. No complaints of nausea or vomiting. No cough or sputum production. No chest pain or shortness of breath. No headache or dizziness or lightheadedness. Foot x-ray showed at least 1 area within the cortex of the fifth digit proximal phalanx which could represent erosion in the setting of osteoarthritis versus summation artifact. Consider MRI foot for definitive evaluation. Laboratory data showed WBC 9.8 hemoglobin 11.7 and platelets 518 Sodium 136 potassium 4.8 chloride 106 bicarb is 24 BUN 20 and creatinine 1.21 and a blood sugar of 207 Alk phos 111, CRP 4.7 and albumin 3.4 Patient was initially started on Zosyn and vancomycin. Lower extremity ultrasound arterial showed findings suggestive of moderate peripheral atherosclerotic disease of the right lower extremity. Mild peripheral atherosclerotic disease of the left lower extremity. 12/15/2023 Patient is resting in the bed. Just came back from surgery. Patient is s/p left fifth toe amputation today on 12/15/2023. Pain is controlled. No complaints of fever or chills. No nausea vomiting abdominal pain or diarrhea. No cough or production. Laboratory data showed WBC 9.2 hemoglobin 11.4 and platelets Sodium 139 potassium 4.2 chloride 109 bicarb is 23 BUN 15 creatinine 1.08 blood sugar this 67 this morning. A1c 9.5. Patient is being continued on antibiotics Unasyn and vancomycin. Blood cultures negative so far. ID and vascular surgery is on board. Current medications reviewed. Objective - Vital Signs Vital signs: Vital Signs Temp 97.8 F 12/15/23 20:30 Pulse 68 12/15/23 20:30 Resp 16 12/15/23 20:30 BP 146/59 12/15/23 20:30 Pulse Ox 96 12/15/23 20:30 FiO2 Intake & Output 12/15/23 12/15/23 12/16/23 06:59 18:59 06:59 Intake Total 1200 500 Output Total 1000 1010 450 Balance 200 -510 -450 Weight 88.904 kg Intake: IV 500 Intake, IV Titration 700 Amount Ampicillin-Sulbactam 3 gm 200 In Sodium Chloride 0.9% 100 ml @ 200 mls/hr IVPB Q6H [facility] Rx#:[id number] Vancomycin 1,500 mg In 500 Sodium Chloride 0.9% 500 ml 500 ml @ 167 mls/hr IVPB Q16H [facility] Rx#: [id number] Oral 500 Output: Urine 1000 1000 450 Estimated Blood Loss 10 Other: Voiding Method Toilet Toilet - Exam PHYSICAL EXAMINATION: Patient is lying in the bed comfortably, no acute distress, awake alert and oriented.. HEENT: Normocephalic. Neck is supple. Pupils reactive. Nostrils clear. Oral cavity is moist. Neck reveals no JVD, carotid bruits, or thyromegaly. CHEST EXAMINATION: Trachea is central. Symmetrical expansion. Lung oden clear to auscultation and percussion. CARDIAC: Normal S1, S2 with no gallops. No murmurs ABDOMEN: Soft. Bowel sounds present. Nontender. No organomegaly. No abdominal bruits. Extremities: reveal no edema. No clubbing or cyanosis Neurologically awake, alert, oriented x3 with well-coordinated movements. No focal deficits noted Skin: No rash. Left foot surgical site is bandaged.. Psychiatric: Coperative. Nonsuicidal, Musculoskeletal: No joint swelling or deformity. Normal range of motion. - Labs CBC & Chem 7: 12/15/23 07:52 12/15/23 07:52 Labs: Abnormal Lab Results - Last 24 Hours (Table) 12/15/23 12/15/23 12/15/23 Range/Units 07:52 07:52 07:52 RBC 3.73 L (4.30-5.90) m/uL Hgb 11.4 L (13.0-17.5) gm/dL Hct 35.7 L (39.0-53.0) % Chloride 109 H (98-107) mmol/L Glucose 67 L (74-99) mg/dL POC Glucose (mg/dL) (70-110) mg/dL Hemoglobin A1c 9.5 H (<=6.0) % 12/15/23 12/15/23 Range/Units 17:15 19:57 RBC (4.30-5.90) m/uL Hgb (13.0-17.5) gm/dL Hct (39.0-53.0) % Chloride (98-107) mmol/L Glucose (74-99) mg/dL POC Glucose (mg/dL) 66 L 149 H (70-110) mg/dL Hemoglobin A1c (<=6.0) % Microbiology - Last 24 Hours (Table) 12/13/23 15:35 Blood Culture - Preliminary Blood Assessment and Plan Assessment: Left diabetic foot infection at the fifth toe and lateral foot. Failed outpatient antibiotic therapy. 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 Hyperglycemia with uncontrolled diabetes type 2 insulin-dependent. Patient does have hypoglycemic episodes. Hyperlipidemia Osteoarthritis Mild cognitive impairment DVT prophylaxis with heparin subcu Prior history of smoking Plan: Patient will be continued vancomycin and Unasyn. Zosyn has been discontinued. Patient is s/p left fifth toe amputation today. Follow-up culture report. Currently with pain management, encourage incentive spirometry. Start back on home insulin regimen and glipizide will be on hold while in the hospital. Started on insulin sliding scale for better blood sugar control. A1c level elevated 9.5.. Follow-up CBC and BMP tomorrow. ID and vascular surgery is on board.. Arterial duplex of the lower extremity was done, report reviewed. Time with Patient: Greater than 30
[2023-12-16 07:15] LABS: Glucose,Whole Blood 118 mg/dL (70-110)
[2023-12-16] MEDS: VANCOMYCIN TROUGH DUE 1 EACH MISC MISCELLANE ONE (07:34)
[2023-12-16 09:25] LABS: African American GFR (CKD) 86 (>60 ml/min/1.73 sqM); Anion Gap 5 mmol/L; Blood Urea Nitrogen 12 mg/dL (9-20); Calcium 8.6 mg/dL (8.4-10.2); Carbon Dioxide 25 mmol/L (22-30); Chloride 108 mmol/L (98-107); Glucose 110 mg/dL (74-99); Non-African American GFR(CKD) 74 (>60 ml/min/1.73 sqM); Potassium 4.7 mmol/L (3.5-5.1); Sodium 138 mmol/L (137-145)
[2023-12-16 12:10] LABS: Glucose,Whole Blood 261 mg/dL (70-110)
[2023-12-16 12:12] LABS: Glucose,Whole Blood 252 mg/dL (70-110)
[2023-12-16 13:30] VITALS: BMI 25.1
--- NOTE | 2023-12-16 13:44 | P.PN ---
Subjective Progress Note Date: 12/16/23 Patient is a 83-year-old male with a past medical history of hypertension, hyperlipidemia, diabetes type 2 insulin-dependent, osteoarthritis and peripheral neuropathy and prior history of smoking was sent from Dr. Singh's office due to left foot infection. Patient has been having left foot diabetic wound which is nonhealing for several weeks. Patient received antibiotic course as an outpatient however it wound is getting worse and extending to the left lateral foot with some discoloration. Patient otherwise denies any complaints of fever or chills. No complaints of nausea or vomiting. No cough or sputum production. No chest pain or shortness of breath. No headache or dizziness or lightheadedness. Foot x-ray showed at least 1 area within the cortex of the fifth digit proximal phalanx which could represent erosion in the setting of osteoarthritis versus summation artifact. Consider MRI foot for definitive evaluation. Laboratory data showed WBC 9.8 hemoglobin 11.7 and platelets 518 Sodium 136 potassium 4.8 chloride 106 bicarb is 24 BUN 20 and creatinine 1.21 and a blood sugar of 207 Alk phos 111, CRP 4.7 and albumin 3.4 Patient was initially started on Zosyn and vancomycin. Lower extremity ultrasound arterial showed findings suggestive of moderate peripheral atherosclerotic disease of the right lower extremity. Mild peripheral atherosclerotic disease of the left lower extremity. 12/15/2023 Patient is resting in the bed. Just came back from surgery. Patient is s/p left fifth toe amputation today on 12/15/2023. Pain is controlled. No complaints of fever or chills. No nausea vomiting abdominal pain or diarrhea. No cough or production. Laboratory data showed WBC 9.2 hemoglobin 11.4 and platelets Sodium 139 potassium 4.2 chloride 109 bicarb is 23 BUN 15 creatinine 1.08 blood sugar this 67 this morning. A1c 9.5. Patient is being continued on antibiotics Unasyn and vancomycin. Blood cultures negative so far. ID and vascular surgery is on board. 12/16. Patient seen and examined. Resting comfortably in the bed. Denies any lightheadedness or dizziness. Vital signs stable REVIEW OF SYSTEMS: CONSTITUTIONAL: No fever, no malaise,. CARDIOVASCULAR: No chest pain, no palpitations, no syncope. PULMONARY: No shortness of breath, no cough, GASTROINTESTINAL: No diarrhea, no nausea, no vomiting, no abdominal pain. NEUROLOGICAL: No headaches, no weakness, PHYSICAL EXAMINATION: GENERAL: The patient is alert and oriented x3, not in any acute distress. Well developed, well nourished. HEENT: Pupils are round and equally reacting to light. EOMI. No scleral icterus. No conjunctival pallor. Normocephalic, atraumatic. No pharyngeal erythema. No thyromegaly. CARDIOVASCULAR: S1 and S2 present. No murmurs, rubs, or gallops. PULMONARY: Chest is clear to auscultation, no wheezing or crackles. ABDOMEN: Soft, nontender, nondistended, normoactive bowel sounds. No palpable organomegaly. MUSCULOSKELETAL: Left foot bandage seen EXTREMITIES: No cyanosis, clubbing, or pedal edema. NEUROLOGICAL: Gross neurological examination did not reveal any focal deficits. SKIN: No rashes. Assessment and plan Left diabetic foot infection at the fifth toe and lateral foot. Failed outpatient antibiotic therapy. 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 Hyperglycemia with uncontrolled diabetes type 2 insulin-dependent. Patient does have hypoglycemic episodes. Hyperlipidemia Osteoarthritis Mild cognitive impairment DVT prophylaxis with heparin subcu Prior history of smoking Monitor vital signs Monitor CBC Monitor CMP Continue wound care s/p left fifth toe amputation Continue IV Unasyn and vancomycin Continue with pain management Monitor blood sugar levels, continue current insulin regimen ID and vascular surgery is on board. Labs and medication were reviewed.. Continue same treatment. Continue with symptomatic treatment. Resume home medication. Monitor labs and vitals. DVT and GI prophylaxis. Further recommendations as per clinical course of the patient Dictation was produced using [employer] dictation software. please excuse any gramm atical, word or spelling errors. Objective - Vital Signs Vital signs: Vital Signs Temp 98.3 F 12/16/23 07:50 Pulse 53 L 12/16/23 07:50 Resp 18 12/16/23 07:50 BP 123/70 12/16/23 07:50 Pulse Ox 97 12/16/23 07:50 FiO2 Intake & Output 12/15/23 12/16/23 12/16/23 18:59 06:59 18:59 Intake Total 500 1890 Output Total 1010 1050 Balance -510 840 Weight 88.904 kg Intake: IV 500 Intake, IV Titration 700 Amount Ampicillin-Sulbactam 3 gm 200 In Sodium Chloride 0.9% 100 ml @ 200 mls/hr IVPB Q6H [facility] Rx#:[id number] Vancomycin 1,500 mg In 500 Sodium Chloride 0.9% 500 ml 500 ml @ 167 mls/hr IVPB Q16H [facility] Rx#: [id number] Oral 1190 Output: Urine 1000 1050 Estimated Blood Loss 10 Other: Voiding Method Toilet Urinal # Voids 2 - Labs CBC & Chem 7: 12/15/23 07:52 12/16/23 06:54 Labs: Abnormal Lab Results - Last 24 Hours (Table) 12/15/23 12/15/23 12/15/23 Range/Units 07:52 17:15 19:57 Chloride (98-107) mmol/L Glucose (74-99) mg/dL POC Glucose (mg/dL) 66 L 149 H (70-110) mg/dL Hemoglobin A1c 9.5 H (<=6.0) % 12/16/23 12/16/23 Range/Units 06:54 07:13 Chloride 108 H (98-107) mmol/L Glucose 110 H (74-99) mg/dL POC Glucose (mg/dL) 118 H (70-110) mg/dL Hemoglobin A1c (<=6.0) % Microbiology - Last 24 Hours (Table) 12/13/23 15:35 Blood Culture - Preliminary Blood
[2023-12-16 17:57] LABS: Glucose,Whole Blood 265 mg/dL (70-110)
[2023-12-16 20:17] LABS: Glucose,Whole Blood 277 mg/dL (70-110)
[2023-12-16] MEDS: INSULIN DETEMIR (LEVEMIR) 100 UNIT/ML SYR SQ SCH (20:41)
--- NOTE | 2023-12-16 22:20 | P.PN ---
Subjective Progress Note Date: 12/16/23 Principal diagnosis: Reason for follow-up is left diabetic foot wound and infection Patient is a 83-year-old male with a past medical history significant for diabetes mellitus hypertension osteoarthritis presented to the hospital for evaluation of left foot nonhealing wound and infection, patient diagnosed with extensive wound to the left foot with some necrotic changes in this patient with underlying history of diabetes mellitus. Patient is status post left fifth toe amputation and was also important was that has been cultured. Procedure completed on On today's evaluation that is 12/16/2023, the patient continues to be afebrile, the patient is on room air and breathing comfortably, the Pt denies having any chest pain or cough, the patient denies having any abdominal pain no vomiting or any diarrhea has been reported by the nursing staff, patient denies any worsening pain to the left foot area. Patient white count is normal 9.2 as of yesterday creatinine 0.96 culture pending Objective - Vital Signs Vital signs: Vital Signs Temp 98.3 F 12/16/23 07:50 Pulse 53 L 12/16/23 07:50 Resp 18 12/16/23 07:50 BP 123/70 12/16/23 07:50 Pulse Ox 97 12/16/23 07:50 FiO2 Intake & Output 12/15/23 12/16/23 12/16/23 18:59 06:59 18:59 Intake Total 500 1890 Output Total 1010 1050 Balance -510 840 Weight 88.904 kg Intake: IV 500 Intake, IV Titration 700 Amount Ampicillin-Sulbactam 3 gm 200 In Sodium Chloride 0.9% 100 ml @ 200 mls/hr IVPB Q6H [facility] Rx#:[id number] Vancomycin 1,500 mg In 500 Sodium Chloride 0.9% 500 ml 500 ml @ 167 mls/hr IVPB Q16H [facility] Rx#: [id number] Oral 1190 Output: Urine 1000 1050 Estimated Blood Loss 10 Other: Voiding Method Toilet Urinal # Voids 2 - Exam GENERAL DESCRIPTION: An elderly male lying in bed in no distress RESPIRATORY SYSTEM: Unlabored breathing , decreased breath sounds at bases HEART: S1 S2 regular rate and rhythm , ABDOMEN: Soft , no tenderness EXTREMITIES: Left foot lateral border wound is currently dressed no drainage on the dressing - Labs CBC & Chem 7: 12/15/23 07:52 12/16/23 06:54 Labs: Abnormal Lab Results - Last 24 Hours (Table) 12/15/23 12/15/23 12/15/23 Range/Units 07:52 17:15 19:57 Chloride (98-107) mmol/L Glucose (74-99) mg/dL POC Glucose (mg/dL) 66 L 149 H (70-110) mg/dL Hemoglobin A1c 9.5 H (<=6.0) % 12/16/23 12/16/23 Range/Units 06:54 07:13 Chloride 108 H (98-107) mmol/L Glucose 110 H (74-99) mg/dL POC Glucose (mg/dL) 118 H (70-110) mg/dL Hemoglobin A1c (<=6.0) % Microbiology - Last 24 Hours (Table) 12/13/23 15:35 Blood Culture - Preliminary Blood Assessment and Plan (1) Gangrene of toe of left foot Current Visit: Yes Status: Acute Code(s): I96 - GANGRENE, NOT ELSEWHERE CLASSIFIED SNOMED Code(s): 46528275857496438 (2) Diabetic infection of left foot Current Visit: Yes Status: Acute Code(s): E11.628 - TYPE 2 DIABETES MELLITUS WITH OTHER SKIN COMPLICATIONS; L08.9 - LOCAL INFECTION OF THE SKIN AND SUBCUTANEOUS TISSUE, UNSP SNOMED Code(s): 41938033 (3) Gangrene of left foot Current Visit: Yes Status: Acute Code(s): I96 - GANGRENE, NOT ELSEWHERE CLASSIFIED SNOMED Code(s): 61790171407872098 Plan: 1patient was in the hospital with extensive left diabetic foot infection that has been there for couple of weeks failing outpatient treatment both local and antibiotic therapy we will need to cover for the polymicrobial jorge associated with diabetic foot infection 2-patient is status post amputation of the left fifth toe and culture are currently pending 3-patient to continue with vancomycin and Unasyn while waiting for the culture to finalize will likely need IV antibiotic on discharge Dictation was produced using [email or web address]netation software. please excuse any grammatical, word or spelling errors. Time with Patient: Less than 30
[2023-12-17 07:15] LABS: Glucose,Whole Blood 97 mg/dL (70-110)
[2023-12-17 12:08] LABS: Glucose,Whole Blood 253 mg/dL (70-110)
--- NOTE | 2023-12-17 12:38 | P.PN ---
Subjective Progress Note Date: 12/17/23 Patient is a 83-year-old male with a past medical history of hypertension, hyperlipidemia, diabetes type 2 insulin-dependent, osteoarthritis and peripheral neuropathy and prior history of smoking was sent from Dr. Singh's office due to left foot infection. Patient has been having left foot diabetic wound which is nonhealing for several weeks. Patient received antibiotic course as an outpatient however it wound is getting worse and extending to the left lateral foot with some discoloration. Patient otherwise denies any complaints of fever or chills. No complaints of nausea or vomiting. No cough or sputum production. No chest pain or shortness of breath. No headache or dizziness or lightheadedness. Foot x-ray showed at least 1 area within the cortex of the fifth digit proximal phalanx which could represent erosion in the setting of osteoarthritis versus summation artifact. Consider MRI foot for definitive evaluation. Laboratory data showed WBC 9.8 hemoglobin 11.7 and platelets 518 Sodium 136 potassium 4.8 chloride 106 bicarb is 24 BUN 20 and creatinine 1.21 and a blood sugar of 207 Alk phos 111, CRP 4.7 and albumin 3.4 Patient was initially started on Zosyn and vancomycin. Lower extremity ultrasound arterial showed findings suggestive of moderate peripheral atherosclerotic disease of the right lower extremity. Mild peripheral atherosclerotic disease of the left lower extremity. 12/15/2023 Patient is resting in the bed. Just came back from surgery. Patient is s/p left fifth toe amputation today on 12/15/2023. Pain is controlled. No complaints of fever or chills. No nausea vomiting abdominal pain or diarrhea. No cough or production. Laboratory data showed WBC 9.2 hemoglobin 11.4 and platelets Sodium 139 potassium 4.2 chloride 109 bicarb is 23 BUN 15 creatinine 1.08 blood sugar this 67 this morning. A1c 9.5. Patient is being continued on antibiotics Unasyn and vancomycin. Blood cultures negative so far. ID and vascular surgery is on board. 12/16. Patient seen and examined. Resting comfortably in the bed. Denies any lightheadedness or dizziness. Vital signs stable 12/17. Patient seen and examined. Sitting comfortably in the bed. Left foot pain has improved. ID recommend IV antibiotics at discharge. PICC line ordered by ID REVIEW OF SYSTEMS: CONSTITUTIONAL: No fever, no malaise,. CARDIOVASCULAR: No chest pain, no palpitations, no syncope. PULMONARY: No shortness of breath, no cough, GASTROINTESTINAL: No diarrhea, no nausea, no vomiting, no abdominal pain. NEUROLOGICAL: No headaches, no weakness, PHYSICAL EXAMINATION: GENERAL: The patient is alert and oriented x3, not in any acute distress. Well developed, well nourished. HEENT: Pupils are round and equally reacting to light. EOMI. No scleral icterus. No conjunctival pallor. Normocephalic, atraumatic. No pharyngeal erythema. No thyromegaly. CARDIOVASCULAR: S1 and S2 present. No murmurs, rubs, or gallops. PULMONARY: Chest is clear to auscultation, no wheezing or crackles. ABDOMEN: Soft, nontender, nondistended, normoactive bowel sounds. No palpable organomegaly. MUSCULOSKELETAL: Left foot bandage seen EXTREMITIES: No cyanosis, clubbing, or pedal edema. NEUROLOGICAL: Gross neurological examination did not reveal any focal deficits. SKIN: No rashes. Assessment and plan Left diabetic foot infection at the fifth toe and lateral foot. Failed outpatient antibiotic therapy. 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 Hyperglycemia with uncontrolled diabetes type 2 insulin-dependent. Patient does have hypoglycemic episodes. Hyperlipidemia Osteoarthritis Mild cognitive impairment DVT prophylaxis with heparin subcu Prior history of smoking Monitor vital signs Monitor CBC Monitor CMP Continue wound care s/p left fifth toe amputation Continue IV Unasyn and vancomycin Continue with pain management Monitor blood sugar levels, continue current insulin regimen ID following Vascular surgery following Labs and medication were reviewed.. Continue same treatment. Continue with symptomatic treatment. Resume home medication. Monitor labs and vitals. DVT and GI prophylaxis. Further recommendations as per clinical course of the patient Dictation was produced using [employer] dictation software. please excuse any grammatical, word or spelling errors. Objective - Vital Signs Vital signs: Vital Signs Temp 98.1 F 12/17/23 07:13 Pulse 55 L 12/17/23 07:13 Resp 17 12/17/23 07:13 BP 143/66 12/17/23 07:13 Pulse Ox 98 12/17/23 07:13 FiO2 Intake & Output 12/16/23 12/17/23 12/17/23 18:59 06:59 18:59 Intake Total 700 1290 Output Total 1200 Balance 700 90 Weight 88.904 kg Intake: Intake, IV Titration 700 700 Amount Ampicillin-Sulbactam 3 gm 200 200 In Sodium Chloride 0.9% 100 ml @ 200 mls/hr IVPB Q6H [facility] Rx#:[id number] Vancomycin 1,500 mg In 500 500 Sodium Chloride 0.9% 500 ml 500 ml @ 167 mls/hr IVPB Q16H [facility] Rx#: [id number] Oral 590 Output: Urine 1200 Other: Voiding Method Urinal Urinal - Labs CBC & Chem 7: 12/15/23 07:52 12/16/23 06:54 Labs: Abnormal Lab Results - Last 24 Hours (Table) 12/16/23 12/16/23 12/16/23 Range/Units 06:54 12:09 12:10 Chloride 108 H (98-107) mmol/L Glucose 110 H (74-99) mg/dL POC Glucose (mg/dL) 261 H 252 H (70-110) mg/dL 12/16/23 12/16/23 Range/Units 17:56 20:16 Chloride (98-107) mmol/L Glucose (74-99) mg/dL POC Glucose (mg/dL) 265 H 277 H (70-110) mg/dL Microbiology - Last 24 Hours (Table) 12/13/23 15:35 Blood Culture - Preliminary Blood 12/15/23 13:15 Wound Culture - Preliminary Toe - Left Fifth Gram Neg Bacilli
--- NOTE | 2023-12-17 14:52 | P.PN ---
Subjective Progress Note Date: 12/17/23 Principal diagnosis: Reason for follow-up is left diabetic foot wound and infection Patient is a 83-year-old male with a past medical history significant for diabetes mellitus hypertension osteoarthritis presented to the hospital for evaluation of left foot nonhealing wound and infection, patient diagnosed with extensive wound to the left foot with some necrotic changes in this patient with underlying history of diabetes mellitus. Patient is status post left fifth toe amputation and was also important was that has been cultured. Procedure completed on On today's evaluation that is 12/17/2023, Patient is afebrile ,patient is currently on room air and denies having any shortness of breath, the patient denies any chest pain or cough, the patient denies any nausea vomiting did not have any abdominal pain and no diarrhea, denies any worsening pain to the left foot wound area. Wound culture currently growing gram-negative no CBC was done today Objective - Vital Signs Vital signs: Vital Signs Temp 97.7 F 12/17/23 12:06 Pulse 50 L 12/17/23 12:06 Resp 17 12/17/23 12:06 BP 174/75 12/17/23 12:06 Pulse Ox 99 12/17/23 12:06 FiO2 Intake & Output 12/16/23 12/17/23 12/17/23 18:59 06:59 18:59 Intake Total 700 1290 Output Total 1200 Balance 700 90 Weight 88.904 kg Intake: Intake, IV Titration 700 700 Amount Ampicillin-Sulbactam 3 gm 200 200 In Sodium Chloride 0.9% 100 ml @ 200 mls/hr IVPB Q6H [facility] Rx#:[id number] Vancomycin 1,500 mg In 500 500 Sodium Chloride 0.9% 500 ml 500 ml @ 167 mls/hr IVPB Q16H [facility] Rx#: [id number] Oral 590 Output: Urine 1200 Other: Voiding Method Urinal Urinal - Exam GENERAL DESCRIPTION: An elderly male lying in bed in no distress RESPIRATORY SYSTEM: Unlabored breathing , decreased breath sounds at bases HEART: S1 S2 regular rate and rhythm , ABDOMEN: Soft , no tenderness EXTREMITIES: Left foot lateral border wound is deep wound base looks clean the importance palpable - Labs CBC & Chem 7: 12/15/23 07:52 12/16/23 06:54 Labs: Abnormal Lab Results - Last 24 Hours (Table) 12/16/23 12/16/23 12/17/23 Range/Units 17:56 20:16 12:07 POC Glucose (mg/dL) 265 H 277 H 253 H (70-110) mg/dL Microbiology - Last 24 Hours (Table) 12/13/23 15:35 Blood Culture - Preliminary Blood 12/15/23 13:15 Wound Culture - Preliminary Toe - Left Fifth Gram Neg Bacilli Assessment and Plan (1) Gangrene of toe of left foot Current Visit: Yes Status: Acute Code(s): I96 - GANGRENE, NOT ELSEWHERE CLASSIFIED SNOMED Code(s): 81716382499238157 (2) Diabetic infection of left foot Current Visit: Yes Status: Acute Code(s): E11.628 - TYPE 2 DIABETES MELLITUS WITH OTHER SKIN COMPLICATIONS; L08.9 - LOCAL INFECTION OF THE SKIN AND SUBCUTANEOUS TISSUE, UNSP SNOMED Code(s): 50435755 (3) Gangrene of left foot Current Visit: Yes Status: Acute Code(s): I96 - GANGRENE, NOT ELSEWHERE CLASSIFIED SNOMED Code(s): 15264247680993661 Plan: 1patient was in the hospital with extensive left diabetic foot infection that has been there for couple of weeks failing outpatient treatment both local and antibiotic therapy we will need to cover for the polymicrobial jorge associated with diabetic foot infection 2-patient is status post amputation of the left fifth toe and culture are currently growing gram-negative bacilli wound is palpable concerning for osteomyelitis 3-we will discontinue vancomycin and Unasyn, start patient on Zosyn while waiting for ID sensitivities of the gram-negative we will order PICC line for outpatient antibiotics Dictation was produced using [employer] dictation software. please excuse any grammatical, word or spelling errors. Time with Patient: Less than 30
[2023-12-17] MEDS: PIPERACILLIN-TAZOBACTAM 3.375 GM in SODIUM CHLORIDE 0.9% 100 ML IVPB SCH (15:45)
[2023-12-17 17:23] LABS: Glucose,Whole Blood 274 mg/dL (70-110)
[2023-12-17 20:18] LABS: Glucose,Whole Blood 241 mg/dL (70-110)
[2023-12-18 06:44] LABS: ALT 38 U/L (4-49); AST 49 U/L (17-59); African American GFR (CKD) 80 (>60 ml/min/1.73 sqM); Albumin 2.8 g/dL (3.5-5.0); Albumin/Globulin Ratio 1.1; Alkaline Phosphatase 87 U/L (38-126); Anion Gap 4 mmol/L; Blood Urea Nitrogen 15 mg/dL (9-20); Calcium 8.5 mg/dL (8.4-10.2); Carbon Dioxide 24 mmol/L (22-30); Chloride 109 mmol/L (98-107); Globulin 2.6 g/dL; Glucose 131 mg/dL (74-99); Non-African American GFR(CKD) 70 (>60 ml/min/1.73 sqM); Potassium 4.2 mmol/L (3.5-5.1); Sodium 137 mmol/L (137-145); Total Bilirubin 0.6 mg/dL (0.2-1.3); Total Protein 5.4 g/dL (6.3-8.2)
[2023-12-18 07:15] LABS: Glucose,Whole Blood 120 mg/dL (70-110)
[2023-12-18 08:22] LABS: HCT 31.3 % (39.6-50.0); MCH 30.5 pg (27.0-32.0); MCHC 31.9 g/dL (32.0-37.0); MCV 95.4 FL (80.0-97.0); Mean Platelet Volume 8.9 FL (9.5-12.2); NRBC Per 100 WBC 0 X 10*3/uL (0.00-0.01); Platelet Count 301 X 10*3/uL (140-440); RBC 3.28 X 10*6/uL (4.40-5.60); RDW 12.6 % (11.5-14.5); WBC 5.67 X 10*3/uL (4.50-10.00)
--- NOTE | 2023-12-18 11:10 | P.PN ---
Subjective Progress Note Date: 12/18/23 Patient is seen and examined today as a follow-up. He is postop day #3 status post left fifth toe amputation. States pain has improved. No further sharp pains. He has been afebrile. He remains on IV antibiotics. Orders placed for PICC line placement. Objective - Vital Signs Vital signs: Vital Signs Temp 98.9 F 12/18/23 02:00 Pulse 58 L 12/18/23 02:00 Resp 16 12/18/23 02:00 BP 111/41 12/18/23 02:00 Pulse Ox 97 12/18/23 02:00 FiO2 Intake & Output 12/17/23 12/18/23 12/18/23 18:59 06:59 18:59 Intake Total 1080 900 Output Total 1400 Balance 1080 -500 Intake: Intake, IV Titration 100 Amount Piperacillin-Tazobactam 3 100 .375 gm In Sodium Chloride 0.9% 100 ml @ 25 mls/hr IVPB Q8HR [facility] Rx# :[id number] Oral 1080 800 Output: Urine 1400 Other: Voiding Method Urinal Toilet Urinal # Voids 1 - Exam General appearance: The patient is alert, oriented, appears in no acute distress. HET: Head is normocephalic and atraumatic. Pupils are equal and reactive. Neck: Supple. Abdomen: Soft, nondistended. Extremities: Left fifth toe amputation site clean, no drainage or odor. Dressing reapplied. Neurological: No focal deficits. Strength and sensation are grossly intact. - Labs CBC & Chem 7: 12/18/23 06:06 12/18/23 06:06 Labs: Abnormal Lab Results - Last 24 Hours (Table) 12/17/23 12/17/23 12/17/23 Range/Units 12:07 17:22 20:17 RBC (4.40-5.60) X 10*6/uL Hgb (13.0-17.0) g/dL Hct (39.6-50.0) % MCHC (32.0-37.0) g/dL MPV (9.5-12.2) FL Chloride (98-107) mmol/L Glucose (74-99) mg/dL POC Glucose (mg/dL) 253 H 274 H 241 H (70-110) mg/dL Total Protein (6.3-8.2) g/dL Albumin (3.5-5.0) g/dL 12/18/23 12/18/23 12/18/23 Range/Units 06:06 06:06 07:14 RBC 3.28 L (4.40-5.60) X 10*6/uL Hgb 10.0 L (13.0-17.0) g/dL Hct 31.3 L (39.6-50.0) % MCHC 31.9 L (32.0-37.0) g/dL MPV 8.9 L (9.5-12.2) FL Chloride 109 H (98-107) mmol/L Glucose 131 H (74-99) mg/dL POC Glucose (mg/dL) 120 H (70-110) mg/dL Total Protein 5.4 L (6.3-8.2) g/dL Albumin 2.8 L (3.5-5.0) g/dL Microbiology - Last 24 Hours (Table) 12/15/23 13:15 Gram Stain - Final Toe - Left Fifth Wound Culture - Final Citrobacter koseri 12/15/23 13:15 Anaerobic Culture - Preliminary Toe - Left Fifth 12/13/23 15:35 Blood Culture - Preliminary Blood Assessment and Plan Assessment: 1. Left fifth toe infected wound, status post fifth toe amputation 2. Cellulitis 3. Diabetes mellitus Plan: 1. Infectious disease on consultation, appreciate recommendations for IV ant ibiotics 2. Patient is status post left fifth toe amputation 3. Left foot heel walk only 4. Consult to [facility] wound care 5. Plan for PICC line later today or tomorrow Thank you for this consultation, patient is cleared for discharge once PICC line placed. The impression and plan of care has been dictated as directed. Dr. Fernandez I performed a history and examination of this patient, discussed the same with the dictator. I agree with the dictator's note ,documented as a scribe. Any additional findings or plans will be noted.
--- NOTE | 2023-12-18 11:42 | P.CONS ---
History of Present Illness - Reason for Consult Consult date: 12/18/23 wound care - History of Present Illness This is an 83-year-old patient known to the wound care center who was previously followed with Dr. Tobar for a previous ulceration. Patient's past medical history is significant for diabetes, hyperlipidemia, osteoarthritis, neuropathy, left foot wound was been following with Dr. Singh. Patient underwent a left fifth toe amputation related to infected diabetic foot ulceration and gangrene. Ulceration shows granulation nonviable tissue and slough present. Review Of Systems: Constitutional: No fever, no chills, no night sweats. No weight change. No weakness, fatigue or lethargy. No daytime sleepiness. Integumentary:reports wounds, no lesions. No rash or pruritus. No unusual bruising. No change in hair or nails. Physical exam: General Appearance: Alert, cooperative, no distress, appears stated age. Skin: See HPI all other Skin color, texture, tugor normal, no rashes or lesions. Neurologic: Alert oriented x3 Assessment: 1. Diabetic foot ulceration Hernandez grade 4 2. Nonhealing ulceration with bone necrosis 3. Osteomyelitis Plan: 1. Apply Santyl, saline moist gauze, dry gauze, rolled gauze and secure with paper tape. Change daily. Patient is agreeable to come to the wound care center for continued treatment. Thank you for the consultation any questions please contact the wound care center DNP note has been reviewed and discussed with Dr. Tobar and the impression and plan of care has been directed as dictated. Past Medical History Past Medical History: Diabetes Mellitus, Hyperlipidemia, Osteoarthritis (OA) Additional Past Medical History / Comment(s): NEUROPATHY FEET. History of Any Multi-Drug Resistant Organisms: None Reported Past Surgical History: Orthopedic Surgery, Tonsillectomy Additional Past Surgical History / Comment(s): FOOT SURGERY X2 (BONE REMOVED FOR INFECTION), CATARACTS . Past Anesthesia/Blood Transfusion Reactions: No Reported Reaction Past Psychological History: No Psychological Hx Reported Smoking Status: Former smoker Past Alcohol Use History: Occasional Additional Past Alcohol Use History / Comment(s): SMOKES 1/2 PPD, SMOKING FOR OVER 20 YEARS. Past Drug Use History: None Reported - Past Family History Sister(s) Family Medical History: Cancer Medications and Allergies Home Medications Medication Instructions Recorded Confirmed Type Simvastatin [Zocor] 20 mg PO DAILY 07/29/16 12/13/23 History glipiZIDE [Glucotrol] 5 mg PO TID-W/MEALS 07/29/16 12/13/23 History Insulin Glargine,Hum.rec.anlog 60 unit SQ HS 11/13/19 12/13/23 History [Franklyn Avilaostavelina] Aspirin EC [Ecotrin Low Dose] 81 mg PO DAILY 12/13/23 12/13/23 History Donepezil [Aricept] 5 mg PO HS 12/13/23 12/13/23 History Sulfamethox-Tmp 800-160Mg [Bactrim 1 tab PO Q12HR 12/13/23 12/13/23 History DS 800-160 mg] Allergies Allergy/AdvReac Type Severity Reaction Status Date / Time No Known Allergies Allergy Verified 12/15/23 11:42 Physical Exam Vitals: Vital Signs Temp Pulse Pulse Resp BP Pulse Ox 12/18/23 07:16 97.9 F 58 L 17 162/73 97 12/18/23 02:00 98.9 F 58 L 16 111/41 97 12/17/23 20:05 16 12/17/23 20:00 98.9 F 58 L 16 148/78 97 12/17/23 12:06 97.7 F 50 L 17 174/75 99 Intake and Output 12/17/23 12/18/23 12/18/23 22:59 06:59 14:59 Intake Total 1080 900 Output Total 1400 350 Balance 1080 -500 -350 Intake: Intake, IV Titration 100 Amount Piperacillin-Tazobactam 3 100 .375 gm In Sodium Chloride 0.9% 100 ml @ 25 mls/hr IVPB Q8HR [facility] Rx# :[id number] Oral 1080 800 Output: Urine 1400 350 Other: Voiding Method Toilet Urinal # Voids 1 Results CBC & Chem 7: 12/18/23 06:06 12/18/23 06:06 Labs: Abnormal Lab Results - Last 24 Hours (Table) 12/17/23 12/17/23 12/17/23 Range/Units 12:07 17:22 20:17 RBC (4.40-5.60) X 10*6/uL Hgb (13.0-17.0) g/dL Hct (39.6-50.0) % MCHC (32.0-37.0) g/dL MPV (9.5-12.2) FL Chloride (98-107) mmol/L Glucose (74-99) mg/dL POC Glucose (mg/dL) 253 H 274 H 241 H (70-110) mg/dL Total Protein (6.3-8.2) g/dL Albumin (3.5-5.0) g/dL 12/18/23 12/18/23 12/18/23 Range/Units 06:06 06:06 07:14 RBC 3.28 L (4.40-5.60) X 10*6/uL Hgb 10.0 L (13.0-17.0) g/dL Hct 31.3 L (39.6-50.0) % MCHC 31.9 L (32.0-37.0) g/dL MPV 8.9 L (9.5-12.2) FL Chloride 109 H (98-107) mmol/L Glucose 131 H (74-99) mg/dL POC Glucose (mg/dL) 120 H (70-110) mg/dL Total Protein 5.4 L (6.3-8.2) g/dL Albumin 2.8 L (3.5-5.0) g/dL Microbiology - Last 24 Hours (Table) 12/15/23 13:15 Gram Stain - Final Toe - Left Fifth Wound Culture - Final Citrobacter koseri 12/15/23 13:15 Anaerobic Culture - Preliminary Toe - Left Fifth Assessment and Plan (1) Non-pressure chronic ulcer of other part of left foot with necrosis of bone Current Visit: Yes Status: Acute Code(s): L97.524 - NON-PRS CHRONIC ULCER OTH PRT LEFT FOOT W NECROSIS OF BONE SNOMED Code(s): 90217282150552052 (2) Type 2 diabetes mellitus with foot ulcer Current Visit: Yes Status: Acute Code(s): E11.621 - TYPE 2 DIABETES MELLITUS WITH FOOT ULCER; L97.509 - NON-PRESSURE CHRONIC ULCER OTH PRT UNSP FOOT W UNSP SEVERITY SNOMED Code(s): 881800683 (3) Osteomyelitis, unspecified Current Visit: Yes Status: Acute Code(s): M86.9 - OSTEOMYELITIS, UNSPECIFIED SNOMED Code(s): 12495869
[2023-12-18 11:53] LABS: Glucose,Whole Blood 256 mg/dL (70-110)
[2023-12-18] MEDS: COLLAGENASE 250 UNIT/GM OINTMENT 30 GM TUBE TOPICAL SCH (12:29)
--- NOTE | 2023-12-18 13:09 | P.PN ---
Subjective Progress Note Date: 12/18/23 Patient is a 83-year-old male with a past medical history of hypertension, hyperlipidemia, diabetes type 2 insulin-dependent, osteoarthritis and peripheral neuropathy and prior history of smoking was sent from Dr. Singh's office due to left foot infection. Patient has been having left foot diabetic wound which is nonhealing for several weeks. Patient received antibiotic course as an outpatient however it wound is getting worse and extending to the left lateral foot with some discoloration. Patient otherwise denies any complaints of fever or chills. No complaints of nausea or vomiting. No cough or sputum production. No chest pain or shortness of breath. No headache or dizziness or lightheadedness. Foot x-ray showed at least 1 area within the cortex of the fifth digit proximal phalanx which could represent erosion in the setting of osteoarthritis versus summation artifact. Consider MRI foot for definitive evaluation. Laboratory data showed WBC 9.8 hemoglobin 11.7 and platelets 518 Sodium 136 potassium 4.8 chloride 106 bicarb is 24 BUN 20 and creatinine 1.21 and a blood sugar of 207 Alk phos 111, CRP 4.7 and albumin 3.4 Patient was initially started on Zosyn and vancomycin. Lower extremity ultrasound arterial showed findings suggestive of moderate peripheral atherosclerotic disease of the right lower extremity. Mild peripheral atherosclerotic disease of the left lower extremity. 12/15/2023 Patient is resting in the bed. Just came back from surgery. Patient is s/p left fifth toe amputation today on 12/15/2023. Pain is controlled. No complaints of fever or chills. No nausea vomiting abdominal pain or diarrhea. No cough or production. Laboratory data showed WBC 9.2 hemoglobin 11.4 and platelets Sodium 139 potassium 4.2 chloride 109 bicarb is 23 BUN 15 creatinine 1.08 blood sugar this 67 this morning. A1c 9.5. Patient is being continued on antibiotics Unasyn and vancomycin. Blood cultures negative so far. ID and vascular surgery is on board. 12/16. Patient seen and examined. Resting comfortably in the bed. Denies any lightheadedness or dizziness. Vital signs stable 12/17. Patient seen and examined. Sitting comfortably in the bed. Left foot pain has improved. ID recommend IV antibiotics at discharge. PICC line ordered by ID 12/18. Patient seen and examined. Lab work done this morning showed WBC 5.61, hemoglobin 10, platelet count 301, sodium 139, potassium 4.2, BUN 15, creatinine 1.0 REVIEW OF SYSTEMS: CONSTITUTIONAL: No fever, no malaise,. CARDIOVASCULAR: No chest pain, no palpitations, no syncope. PULMONARY: No shortness of breath, no cough, GASTROINTESTINAL: No diarrhea, no nausea, no vomiting, no abdominal pain. NEUROLOGICAL: No headaches, no weakness, PHYSICAL EXAMINATION: GENERAL: The patient is alert and oriented x3, not in any acute distress. Well developed, well nourished. HEENT: Pupils are round and equally reacting to light. EOMI. No scleral icterus. No conjunctival pallor. Normocephalic, atraumatic. No pharyngeal erythema. No thyromegaly. CARDIOVASCULAR: S1 and S2 present. No murmurs, rubs, or gallops. PULMONARY: Chest is clear to auscultation, no wheezing or crackles. ABDOMEN: Soft, nontender, nondistended, normoactive bowel sounds. No palpable organomegaly. MUSCULOSKELETAL: Left foot bandage seen EXTREMITIES: No cyanosis, clubbing, or pedal edema. NEUROLOGICAL: Gross neurological examination did not reveal any focal deficits. SKIN: No rashes. Assessment and plan Left diabetic foot infection at the fifth toe and lateral foot. Failed outpatient antibiotic therapy. 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 Hyperglycemia with uncontrolled diabetes type 2 insulin-dependent. Patient does have hypoglycemic episodes. Hyperlipidemia Osteoarthritis Mild cognitive impairment DVT prophylaxis with heparin subcu Prior history of smoking Monitor vital signs Monitor CBC Monitor CMP Continue wound care s/p left fifth toe amputation Continue IV Zosyn Continue with pain management Monitor blood sugar levels, continue current insulin regimen ID following Vascular surgery following Labs and medication were reviewed.. Continue same treatment. Continue with symptomatic treatment. Resume home medication. Monitor labs and vitals. DVT and GI prophylaxis. Further recommendations as per clinical course of the patient Dictation was produced using [employer] dictation software. please excuse any grammatical, word or spelling errors. Objective - Vital Signs Vital signs: Vital Signs Temp 97.9 F 12/18/23 07:16 Pulse 58 L 12/18/23 07:16 Resp 17 12/18/23 07:16 BP 162/73 12/18/23 07:16 Pulse Ox 97 12/18/23 07:16 FiO2 Intake & Output 12/17/23 12/18/2312/18/24 18:59 06:59 18:59 Intake Total 1080 900 Output Total 1400 350 Balance 1080 -500 -350 Intake: Intake, IV Titration 100 Amount Piperacillin-Tazobactam 3 100 .375 gm In Sodium Chloride 0.9% 100 ml @ 25 mls/hr IVPB Q8HR [facility] Rx# :[id number] Oral 1080 800 Output: Urine 1400 350 Other: Voiding Method Urinal Toilet Urinal # Voids 1 1 - Labs CBC & Chem 7: 12/18/23 06:06 12/18/23 06:06 Labs: Abnormal Lab Results - Last 24 Hours (Table) 12/17/23 12/17/23 12/18/23 Range/Units 17:22 20:17 06:06 RBC (4.40-5.60) X 10*6/uL Hgb (13.0-17.0) g/dL Hct (39.6-50.0) % MCHC (32.0-37.0) g/dL MPV (9.5-12.2) FL Chloride 109 H (98-107) mmol/L Glucose 131 H (74-99) mg/dL POC Glucose (mg/dL) 274 H 241 H (70-110) mg/dL Total Protein 5.4 L (6.3-8.2) g/dL Albumin 2.8 L (3.5-5.0) g/dL 12/18/23 12/18/23 12/18/23 Range/Units 06:06 07:14 11:51 RBC 3.28 L (4.40-5.60) X 10*6/uL Hgb 10.0 L (13.0-17.0) g/dL Hct 31.3 L (39.6-50.0) % MCHC 31.9 L (32.0-37.0) g/dL MPV 8.9 L (9.5-12.2) FL Chloride (98-107) mmol/L Glucose (74-99) mg/dL POC Glucose (mg/dL) 120 H 256 H (70-110) mg/dL Total Protein (6.3-8.2) g/dL Albumin (3.5-5.0) g/dL Microbiology - Last 24 Hours (Table) 12/15/23 13:15 Gram Stain - Final Toe - Left Fifth Wound Culture - Final Citrobacter koseri 12/15/23 13:15 Anaerobic Culture - Preliminary Toe - Left Fifth
[2023-12-18 17:26] LABS: Glucose,Whole Blood 349 mg/dL (70-110)
[2023-12-18 20:21] LABS: Glucose,Whole Blood 330 mg/dL (70-110)
[2023-12-19 07:02] LABS: Glucose,Whole Blood 152 mg/dL (70-110)
[2023-12-19] MEDS: LIDOCAINE 1% INJ 10MG/ML (20 ML MDV) SQ ONE (08:22)
--- NOTE | 2023-12-19 08:28 | P.PCN ---
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 Description of Procedure: After written and informed consent was obtained the patient and all risks, benefits and competitions were described the patient was brought to the [facility] and laid in a supine position with his left arm outstretched on an armboard. The area of the left arm was prepped and draped in usual sterile fashion. Timeout was performed in normal fashion. Utilizing ultrasound the basilic vein was visualized and shown to be compressible without any visible thrombus. Under ultrasound guidance the basilic vein was then cannulated with a micropuncture needle and wire was placed under direct visualization of fluoroscopy. Introducer sheath was then placed. The catheter was measured and cut to the appropriate length which was 51 cm. The catheter was then guided through the breakaway sheath and the sheath was removed with good positioning was visualized under fluoroscopy. The catheter was pulled and flushed easily. It was then secured in place in normal fashion. Patient tolerated the procedure well was sent back to his room for recovery.
--- NOTE | 2023-12-19 11:26 | IR ---
EXAMINATION TYPE: IR cvc insert >=5 years Intraoperative/procedural fluoroscopic services were provid ed. CLINICAL INDICATION:Male, 83 years old with history of Abx, 0.7m/0.8844DAP, 4F 51cm lt basilic PICC l ine.; , [facility] Total fluoroscopy time is 0.7 min. DAP: 88.44 uGym2 Please see the operative/procedural note for further details.
[2023-12-19 11:51] LABS: Glucose,Whole Blood 203 mg/dL (70-110)
[2023-12-19 13:31] VITALS: BP 157/73; PULSE 52; RESP 18; TEMP 98.3
--- NOTE | 2023-12-19 13:34 | P.DS ---
Providers Date of admission: 12/13/23 15:07 Expected date of discharge: 12/19/23 Attending physician: Man Munoz Consults: 12/13/23 15:10 Consult Physician Routine Consulting Provider: Ofe Singh Consult Reason/Comments: Left foot infection Do you want consulting provider notified?: Already Contacted 12/13/23 15:22 Consult Physician Urgent Consulting Provider: Tc Solares Consult Reason/Comments: Diabetic infection foot Do you want consulting provider notified?: Yes Primary care physician: Man Munoz Hospital Course: Discharge diagnoses; Left diabetic foot infection at the fifth toe and lateral foot. Failed outpatient antibiotic therapy. 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 Hyperglycemia with uncontrolled diabetes type 2 insulin-dependent. Patient does have hypoglycemic episodes. Hyperlipidemia Osteoarthritis Mild cognitive impairment DVT prophylaxis with heparin subcu Prior history of smoking Hospital course; Patient is a 83-year-old male with a past medical history of hypertension, hyperlipidemia, diabetes type 2 insulin-dependent, osteoarthritis and peripheral neuropathy and prior history of smoking was sent from Dr. Singh's office due to left foot infection. Patient has been having left foot diabetic wound which is nonhealing for several weeks. Patient received antibiotic course as an outpatient however it wound is getting worse and extending to the left lateral foot with some discoloration. Patient otherwise denies any complaints of fever or chills. No complaints of nausea or vomiting. No cough or sputum production. No chest pain or shortness of breath. No headache or dizziness or lightheadedness. Foot x-ray showed at least 1 area within the cortex of the fifth digit proximal phalanx which could represent erosion in the setting of osteoarthritis versus summation artifact. Consider MRI foot for definitive evaluation. Laboratory data showed WBC 9.8 hemoglobin 11.7 and platelets 518 Sodium 136 potassium 4.8 chloride 106 bicarb is 24 BUN 20 and creatinine 1.21 and a blood sugar of 207 Alk phos 111, CRP 4.7 and albumin 3.4 Patient was initially started on Zosyn and vancomycin. Lower extremity ultrasound arterial showed findings suggestive of moderate peripheral atherosclerotic disease of the right lower extremity. Mild peripheral atherosclerotic disease of the left lower extremity. 12/15/2023 Patient is resting in the bed. Just came back from surgery. Patient is s/p left fifth toe amputation today on 12/15/2023. Pain is controlled. No complaints of fever or chills. No nausea vomiting abdominal pain or diarrhea. No cough or production. Laboratory data showed WBC 9.2 hemoglobin 11.4 and platelets Sodium 139 potassium 4.2 chloride 109 bicarb is 23 BUN 15 creatinine 1.08 blood sugar this 67 this morning. A1c 9.5. Patient is being continued on antibiotics Unasyn and vancomycin. Blood cultures negative so far. ID and vascular surgery is on board. 12/16. Patient seen and examined. Resting comfortably in the bed. Denies any lightheadedness or dizziness. Vital signs stable 12/17. Patient seen and examined. Sitting comfortably in the bed. Left foot pain has improved. ID recommend IV antibiotics at discharge. PICC line ordered by ID 12/18. Patient seen and examined. Lab work done this morning showed WBC 5.61, hemoglobin 10, platelet count 301, sodium 139, potassium 4.2, BUN 15, creatinine 1.0 12/19. Patient seen and examined. PICC line placed. Being discharged on IV antibiotics per ID, prescription given by ID. PHYSICAL EXAMINATION: GENERAL: The patient is alert and oriented x3, not in any acute distress. Well developed, well nourished. HEENT: Pupils are round and equally reacting to light. EOMI. No scleral icterus. No conjunctival pallor. Normocephalic, atraumatic. No pharyngeal erythema. No thyromegaly. CARDIOVASCULAR: S1 and S2 present. No murmurs, rubs, or gallops. PULMONARY: Chest is clear to auscultation, no wheezing or crackles. ABDOMEN: Soft, nontender, nondistended, normoactive bowel sounds. No palpable organomegaly. MUSCULOSKELETAL: Left foot bandage seen EXTREMITIES: No cyanosis, clubbing, or pedal edema. NEUROLOGICAL: Gross neurological examination did not reveal any focal deficits. SKIN: No rashes. Dictation was produced using [employer] dictation software. please excuse any grammatical, word or spelling errors. Patient Condition at Discharge: Fair Plan - Discharge Summary Discharge Rx Participant: No New Discharge Prescriptions: New Collagenase [Santyl Ointment] 1 applic TOPICAL DAILY #90 gm metroNIDAZOLE [Flagyl] 500 mg PO TID #90 tab Continue glipiZIDE [Glucotrol] 5 mg PO TID-W/MEALS Simvastatin [Zocor] 20 mg PO DAILY Insulin Glargine,Hum.rec.anlog [Toujeo Max Solostar] 60 unit SQ HS Donepezil [Aricept] 5 mg PO HS Aspirin EC [Ecotrin Low Dose] 81 mg PO DAILY Discontinued Sulfamethox-Tmp 800-160Mg [Bactrim DS 800-160 mg] 1 tab PO Q12HR Discharge Medication List Simvastatin [Zocor] 20 mg PO DAILY 07/29/16 [History] glipiZIDE [Glucotrol] 5 mg PO TID-W/MEALS 07/29/16 [History] Insulin Glargine,Hum.rec.anlog [Toujeo Max Solostar] 60 unit SQ HS 11/13/19 [History] Aspirin EC [Ecotrin Low Dose] 81 mg PO DAILY 12/13/23 [History] Donepezil [Aricept] 5 mg PO HS 12/13/23 [History] Collagenase [Santyl Ointment] 1 applic TOPICAL DAILY #90 gm 12/19/23 [Rx] metroNIDAZOLE [Flagyl] 500 mg PO TID #90 tab 12/19/23 [Rx] Follow up Appointment(s)/Referral(s): [facility], [NON-STAFF] - 1 Week Man Munoz DO [Primary Care Provider] - 1-2 days [facility], [REFERRING] - 1 Week [facility] [NON-STAFF] - 1 Week Discharge Disposition: HOME WITH HOME HEALTH SERVICES
--- NOTE | 2023-12-19 14:11 | P.PN ---
Subjective Progress Note Date: 12/19/23 Patient is seen and examined today as a follow-up. He is postop day #4 status post left fifth toe amputation. PICC line was placed yesterday. Plan is for discharge today. Objective - Vital Signs Vital signs: Vital Signs Temp 98.3 F 12/19/23 07:08 Pulse 55 L 12/19/23 07:08 Resp 16 12/19/23 07:08 BP 138/65 12/19/23 07:08 Pulse Ox 96 12/19/23 07:08 FiO2 Intake & Output 12/18/23 12/19/23 12/19/23 18:59 06:59 18:59 Intake Total 200 700 Output Total 350 650 Balance -150 50 Intake: Intake, IV Titration 200 100 Amount Piperacillin-Tazobactam 3 200 100 .375 gm In Sodium Chloride 0.9% 100 ml @ 25 mls/hr IVPB Q8HR [facility] Rx# :[id number] Oral 600 Output: Urine 350 650 Other: Voiding Method Toilet Urinal # Voids 1 - Exam General appearance: The patient is alert, oriented, appears in no acute distress. HET: Head is normocephalic and atraumatic. Pupils are equal and reactive. Neck: Supple. Abdomen: Soft, nondistended. Extremities: Left fifth toe amputation site clean, no drainage or odor. Neurological: No focal deficits. Strength and sensation are grossly intact. - Labs CBC & Chem 7: 12/18/23 06:06 12/18/23 06:06 Labs: Abnormal Lab Results - Last 24 Hours (Table) 12/18/23 12/18/23 12/18/23 Range/Units 11:51 17:24 20:19 POC Glucose (mg/dL) 256 H 349 H 330 H (70-110) mg/dL 12/19/23 Range/Units 07:01 POC Glucose (mg/dL) 152 H (70-110) mg/dL Microbiology - Last 24 Hours (Table) 12/13/23 15:35 Blood Culture - Final Blood Assessment and Plan Assessment: 1. Left fifth toe infected wound, status post fifth toe amputation 2. Cellulitis 3. Diabetes mellitus Plan: 1. PICC line placed 2. Patient is status post left fifth toe amputation 3. Left foot heel walk only 4. Consult to [facility] wound care. Recommend outpatient follow-up Thank you for this consultation, patient is cleared for discharge. Follow-up with Dr. Singh in 2 weeks. The impression and plan of care has been dictated as directed. Dr. Fernandez I performed a history and examination of this patient, discussed the same with the dictator. I agree with the dictator's note ,documented as a scribe. Any additional findings or plans will be noted.
--- NOTE | 2023-12-19 14:15 | P.PN ---
Subjective Progress Note Date: 12/18/23 Principal diagnosis: Reason for follow-up is left diabetic foot wound and infection Patient is a 83-year-old male with a past medical history significant for diabetes mellitus hypertension osteoarthritis presented to the hospital for evaluation of left foot nonhealing wound and infection, patient diagnosed with extensive wound to the left foot with some necrotic changes in this patient with underlying history of diabetes mellitus. Patient is status post left fifth toe amputation and was also important was that has been cultured. Procedure completed on On today's evaluation that is 12/18/2023,the patient denies any fever or any chills, patient is breathing comfortably on room air, the patient denies chest pain shortness of breath and no significant cough, patient denies abdominal pain, no nausea vomiting or diarrhea. Patient pain to the left foot is currently controlled Patient white count 5.67, creatinine 1.01 CRP 4.7 cultures with Citrobacter Objective - Vital Signs Vital signs: Vital Signs Temp 97.9 F 12/18/23 07:16 Pulse 58 L 12/18/23 07:16 Resp 17 12/18/23 07:16 BP 162/73 12/18/23 07:16 Pulse Ox 97 12/18/23 07:16 FiO2 Intake & Output 12/17/23 12/18/23 12/18/23 18:59 06:59 18:59 Intake Total 1080 900 Output Total 1400 350 Balance 1080 -500 -350 Intake: Intake, IV Titration 100 Amount Piperacillin-Tazobactam 3 100 .375 gm In Sodium Chloride 0.9% 100 ml @ 25 mls/hr IVPB Q8HR [facility] Rx# :[id number] Oral 1080 800 Output: Urine 1400 350 Other: Voiding Method Urinal Toilet Urinal # Voids 1 1 - Exam GENERAL DESCRIPTION: An elderly male lying in bed in no distress RESPIRATORY SYSTEM: Unlabored breathing , decreased breath sounds at bases HEART: S1 S2 regular rate and rhythm , ABDOMEN: Soft , no tenderness EXTREMITIES: Left foot lateral border wound is currently dressed no drainage on the dressing - Labs CBC & Chem 7: 12/18/23 06:06 12/18/23 06:06 Labs: Abnormal Lab Results - Last 24 Hours (Table) 12/17/23 12/17/23 12/17/23 Range/Units 12:07 17:22 20:17 RBC (4.40-5.60) X 10*6/uL Hgb (13.0-17.0) g/dL Hct (39.6-50.0) % MCHC (32.0-37.0) g/dL MPV (9.5-12.2) FL Chloride (98-107) mmol/L Glucose (74-99) mg/dL POC Glucose (mg/dL) 253 H 274 H 241 H (70-110) mg/dL Total Protein (6.3-8.2) g/dL Albumin (3.5-5.0) g/dL 12/18/23 12/18/23 12/18/23 Range/Units 06:06 06:06 07:14 RBC 3.28 L (4.40-5.60) X 10*6/uL Hgb 10.0 L (13.0-17.0) g/dL Hct 31.3 L (39.6-50.0) % MCHC 31.9 L (32.0-37.0) g/dL MPV 8.9 L (9.5-12.2) FL Chloride 109 H (98-107) mmol/L Glucose 131 H (74-99) mg/dL POC Glucose (mg/dL) 120 H (70-110) mg/dL Total Protein 5.4 L (6.3-8.2) g/dL Albumin 2.8 L (3.5-5.0) g/dL Microbiology - Last 24 Hours (Table) 12/15/23 13:15 Gram Stain - Final Toe - Left Fifth Wound Culture - Final Citrobacter koseri 12/15/23 13:15 Anaerobic Culture - Preliminary Toe - Left Fifth Assessment and Plan (1) Gangrene of toe of left foot Current Visit: Yes Status: Acute Code(s): I96 - GANGRENE, NOT ELSEWHERE CLASSIFIED SNOMED Code(s): 05331069989716139 (2) Diabetic infection of left foot Current Visit: Yes Status: Acute Code(s): E11.628 - TYPE 2 DIABETES MELLITUS WITH OTHER SKIN COMPLICATIONS; L08.9 - LOCAL INFECTION OF THE SKIN AND SUBCUTANEOUS TISSUE, UNSP SNOMED Code(s): 72263704 (3) Gangrene of left foot Current Visit: Yes Status: Acute Code(s): I96 - GANGRENE, NOT ELSEWHERE CLASSIFIED SNOMED Code(s): 87773861482449010 Plan: 1patient was in the hospital with extensive left diabetic foot infection that has been there for couple of weeks failing outpatient treatment both local and antibiotic therapy we will need to cover for the polymicrobial jorge associated with diabetic foot infection 2-patient is status post amputation of the left fifth toe and culture are currently growing Citrobacter, wound is palpable concerning for osteomyelitis 3-patient to continue with Zosyn waiting for PICC line placement and outpatient IV antibiotic arrangement before discharge Dictation was produced using [employer] dictation software. please excuse any grammatical, word or spelling errors. Time with Patient: Less than 30
--- NOTE | 2023-12-19 14:16 | P.PN ---
Subjective Progress Note Date: 12/19/23 Principal diagnosis: Reason for follow-up is left diabetic foot wound and infection Patient is a 83-year-old male with a past medical history significant for diabetes mellitus hypertension osteoarthritis presented to the hospital for evaluation of left foot nonhealing wound and infection, patient diagnosed with extensive wound to the left foot with some necrotic changes in this patient with underlying history of diabetes mellitus. Patient is status post left fifth toe amputation and was also important was that has been cultured. Procedure completed on On today's evaluation that is 12/19/2023,the patient remains to be afebrile, patient is breathing comfortably on room air without need for supplemental oxygen, the patient denies chest pain shortness of breath and no significant cough, patient denies abdominal pain, no nausea vomiting or diarrhea. Pain to the left foot has decreased in intensity. No new labs obtained today Objective - Vital Signs Vital signs: Vital Signs Temp 97.5 F L 12/19/23 09:30 Pulse 55 L 12/19/23 07:08 Resp 16 12/19/23 09:30 BP 150/79 12/19/23 09:30 Pulse Ox 98 12/19/23 09:30 FiO2 Intake & Output 12/18/23 12/19/23 12/19/23 18:59 06:59 18:59 Intake Total 200 700 Output Total 350 650 Balance -150 50 Intake: Intake, IV Titration 200 100 Amount Piperacillin-Tazobactam 3 200 100 .375 gm In Sodium Chloride 0.9% 100 ml @ 25 mls/hr IVPB Q8HR [facility] Rx# :[id number] Oral 600 Output: Urine 350 650 Other: Voiding Method Toilet Toilet Urinal Urinal # Voids 1 - Exam GENERAL DESCRIPTION: An elderly male lying in bed in no distress RESPIRATORY SYSTEM: Unlabored breathing , decreased breath sounds at bases HEART: S1 S2 regular rate and rhythm , ABDOMEN: Soft , no tenderness EXTREMITIES: Left foot lateral border wound is currently dressed no drainage on the dressing - Labs CBC & Chem 7: 12/18/23 06:06 12/18/23 06:06 Labs: Abnormal Lab Results - Last 24 Hours (Table) 12/18/23 12/18/23 12/18/23 Range/Units 11:51 17:24 20:19 POC Glucose (mg/dL) 256 H 349 H 330 H (70-110) mg/dL 12/19/23 Range/Units 07:01 POC Glucose (mg/dL) 152 H (70-110) mg/dL Microbiology - Last 24 Hours (Table) 12/13/23 15:35 Blood Culture - Final Blood Assessment and Plan (1) Gangrene of toe of left foot Current Visit: Yes Status: Acute Code(s): I96 - GANGRENE, NOT ELSEWHERE CLASSIFIED SNOMED Code(s): 62009543330638838 (2) Diabetic infection of left foot Current Visit: Yes Status: Acute Code(s): E11.628 - TYPE 2 DIABETES MELLITUS WITH OTHER SKIN COMPLICATIONS; L08.9 - LOCAL INFECTION OF THE SKIN AND SUBCUTANEOUS TISSUE, UNSP SNOMED Code(s): 32379790 (3) Gangrene of left foot Current Visit: Yes Status: Acute Code(s): I96 - GANGRENE, NOT ELSEWHERE CLASSIFIED SNOMED Code(s): 40649611576074617 Plan: 1patient was in the hospital with extensive left diabetic foot infection that has been there for couple of weeks failing outpatient treatment both local and antibiotic therapy we will need to cover for the polymicrobial jorge associated with diabetic foot infection 2-patient is status post amputation of the left fifth toe and culture are currently growing Citrobacter, wound is palpable concerning for osteomyelitis 3-patient did get a PICC line this morning antibiotic will be switched over to Rocephin 2 g daily and Flagyl 500 mg p.o. every 8 hours to finish 6-week course of therapy with weekly monitoring of CRP and sed rate and close outpatient fo llow-up prescription provided to the binder caser Dictation was produced using [employer] dictation software. please excuse any grammatical, word or spelling errors. Time with Patient: Less than 30
== END 2023-12-19 16:52 | disposition home health service (06) | DRG 256 ==
LOC: OR 13:29 → 4SSUR 15:07 → 5NMEDONC 18:22
PROVIDERS: ADMIT Family Medicine; ATTEND Family Medicine
PROC: 0Y6Y0Z0 Detachment at Left 5th Toe, Complete, Open Approach (ICD-10-PCS; principal; 2023-12-15 12:30)
PROC: 02HV33Z Insertion of Infusion Device into Superior Vena Cava, Percutaneous Approach (ICD-10-PCS; 2023-12-19)
DX: E11.52 Type 2 diabetes mellitus with diabetic peripheral angiopathy with gangrene (principal); L03.116 Cellulitis of left lower limb; M86.9 Osteomyelitis, unspecified; E11.42 Type 2 diabetes mellitus with diabetic polyneuropathy; E11.622 Type 2 diabetes mellitus with other skin ulcer; E11.621 Type 2 diabetes mellitus with foot ulcer; E11.628 Type 2 diabetes mellitus with other skin complications; L97.524 Non-pressure chronic ulcer of other part of left foot with necrosis of bone; M19.90 Unspecified osteoarthritis, unspecified site; G31.84 Mild cognitive impairment of uncertain or unknown etiology; E11.69 Type 2 diabetes mellitus with other specified complication; I10 Essential (primary) hypertension; E78.5 Hyperlipidemia, unspecified; E11.65 Type 2 diabetes mellitus with hyperglycemia; Z79.4 Long term (current) use of insulin; Z79.84 Long term (current) use of oral hypoglycemic drugs; Z87.891 Personal history of nicotine dependence; Z79.82 Long term (current) use of aspirin; Z79.899 Other long term (current) drug therapy
CPT/HCPCS: 36573; 80048; 80053; 80202; 82565; 83036; 83605; 85025; 85027; 86140; 87040; 87070; 87075; 87077; 87186; 87205; 93922; 96365; 96366; 96367; 99284

== ENCOUNTER → 2024-01-03 | Outpatient (CLI) | payer MEDICARE | END | disposition home or self-care (01) | LOC: LABWHC1 10:12 | PROVIDERS: ATTEND Podiatrist | DX: I11.0 Hypertensive heart disease with heart failure (principal); I50.22 Chronic systolic (congestive) heart failure; E11.621 Type 2 diabetes mellitus with foot ulcer; E11.42 Type 2 diabetes mellitus with diabetic polyneuropathy; L97.524 Non-pressure chronic ulcer of other part of left foot with necrosis of bone; I73.9 Peripheral vascular disease, unspecified | CPT/HCPCS: 36415; 84134 ==

== ENCOUNTER 2024-02-16 10:18 | Day surgery (SDC) | payer MEDICARE ==
[~2024-02-16 10:18] MED LIST changes: -DEXAMETHASONE SOD PHOSPHATE 10 MG/ML 1 ML VIAL IV ONE; +DEXAMETHASONE SOD PHOSPHATE 4 MG/ML 1 ML VIAL IV ONE; -GENTAMICIN 120 MG in SODIUM CHLORIDE 0.9% 100 ML IVPB ONE; +LACTATED RINGERS 1,000 ML IV SCH; +LIDOCAINE 1% (10MG/ML) FOR IV START INTRADERMA PRN; -LIDOCAINE 1% 20 ML VIAL (10MG/ML) FOR IV START INTRADERMA PRN; +MIDAZOLAM 2 MG/2 ML VIAL IV PRN
[2024-02-16 11:03] LABS: Glucose,Whole Blood 109 mg/dL (70-110)
[2024-02-16] MEDS: LACTATED RINGERS 1,000 ML IV ONE (11:11)
[2024-02-16] MEDS: ONDANSETRON 4 MG/2 ML VIAL IVP ONE (11:11)
[2024-02-16] MEDS: DEXAMETHASONE SOD PHOSPHATE 4 MG/ML 1 ML VIAL IVP ONE (11:11)
[2024-02-16] MEDS ORDERED: PROPOFOL 10 MG/ML 20 ML VIAL IV ONE (12:10)
[2024-02-16] MEDS ORDERED: MIDAZOLAM 2 MG/2 ML VIAL ONE (12:10)
[2024-02-16] MEDS ORDERED: GLYCOPYRROLATE 0.2 MG/ML 2 ML VIAL ONE (12:10)
[2024-02-16] MEDS ORDERED: PHENYLEPHRINE 10 MG/ML VIAL ONE (12:10)
[2024-02-16] MEDS ORDERED: fentaNYL (PF) 50 MCG/ML 2 ML AMP ONE (12:10)
[2024-02-16] MEDS: LIDOCAINE 1% INJ 10MG/ML (20 ML MDV) SQ ONE (13:05)
[2024-02-16] MEDS: IV FLUID CONTINUATION 1,000 ML IV ONE (13:25)
--- NOTE | 2024-02-16 13:35 | P.OP ---
Date of Procedure: 02/16/24 Description of Procedure: SURGEON: Ofe Singh DO PREOPERATIVE DIAGNOSIS: Diabetic foot wound, previous left fifth toe amputation. POSTOPERATIVE DIAGNOSIS: Same. OPERATION: Ray amputation of left fourth toe with revision of fifth toe amputation site, ray transection Sharp excisional debridement of wound measuring 9.5 x 4.0 x 1.5 cm to bone Application of EpiFix 7 x 6 cm application of wound VAC ANESTHESIA: Sedation ESTIMATED BLOOD LOSS: 10 cc SPECIMENS REMOVED: Left fourth toe for disposal COMPLICATIONS: None OPERATIVE FINDINGS: Patient is an 83-year-old male with diabetic foot infection that recently had 1/5 toe amputation. There is evidence of bone exposure therefore at this time he returns today for revision and underwent a fourth toe amputation. Risk and benefits were discussed. He seems understood and was willing to proceed. DESCRIPTION OF PROCEDURE: This patient was brought to the operating room, and given local and IV sedation. The operative foot was prepped and draped in sterile manner. An incision was made at the base of the fourth toe deep into skin and fascia on plantar and dorsal aspect until we reached the head of the metatarsal bone.The tendons were divided in plantar and dorsal aspects. The toe was removed. There did appear to be a pathologic fracture at the base of the phalange. The metatarsal was transected. Using rongeurs and bone cutters, the fifth toe metatarsal was cut back flush to the subcutaneous tissue. The surrounding tissues were then curetted to reveal healthy appearing granulation tissue. Due to the wound appearance, it was thought to benefit from placement of skin substitute therefore a 7 x 6 cm EpiFix was placed. A Adaptic was placed overlying it was secured in place with chromic. A wound VAC was placed. The patient tolerated the procedure well. Plan - Discharge Summary Discharge Rx Participant: Yes New Discharge Prescriptions: No Action glipiZIDE [Glucotrol] 5 mg PO TID-W/MEALS Simvastatin [Zocor] 20 mg PO QAM Insulin Glargine,Hum.rec.anlog [Toujuano Max Solostar] 60 unit SQ HS Donepezil [Aricept] 5 mg PO HS metroNIDAZOLE [Flagyl] 500 mg PO TID #90 tab Multivitamins, Thera [Multivitamin (formulary)] 1 tab PO QAM Aspirin EC [Ecotrin Low Dose] 81 mg PO HS cefTRIAXone [Rocephin] 2,000 mg IVPB Q24HR Discharge Medication List Simvastatin [Zocor] 20 mg PO QAM 07/29/16 [History] glipiZIDE [Glucotrol] 5 mg PO TID-W/MEALS 07/29/16 [History] Insulin Glargine,Hum.rec.anlog [Franklyn Avilaostar] 60 unit SQ HS 11/13/19 [History] Aspirin EC [Ecotrin Low Dose] 81 mg PO HS 12/13/23 [History] Donepezil [Aricept] 5 mg PO HS 12/13/23 [History] metroNIDAZOLE [Flagyl] 500 mg PO TID #90 tab 12/19/23 [Rx] Multivitamins, Thera [Multivitamin (formulary)] 1 tab PO QAM 01/19/24 [History] cefTRIAXone [Rocephin] 2,000 mg IVPB Q24HR 02/12/24 [History] Follow up Appointment(s)/Referral(s): Ofe Singh DO [STAFF PHYSICIAN] - 1 Week Activity/Diet/Wound Care/Special Instructions: Nonweightbearing left lower extremity. May use heel touch for transfer with postoperative shoe Utilize wound VAC 125 mmHg, home health care to change 3 times a week down to the level of the Adaptic. If unable to obtain seal, place gauze dressing and change daily, leaving the Adaptic in place Follow-up in office on Monday, bring wound VAC supplies. Resume regular home medications Resume diet as previous [id number] medications for pain control. Discharge Disposition: HOME WITH HOME HEALTH SERVICES
[2024-02-16 14:14] VITALS: RESP 16; TEMP 97.7
[2024-02-16 14:58] VITALS: BP 150/83; PULSE 61
== END 2024-02-16 15:35 | disposition home health service (06) ==
LOC: OR 10:18 → EDSTATUS 14:30 → OR 15:35
PROVIDERS: ATTEND Surgery
DX: E11.621 Type 2 diabetes mellitus with foot ulcer (principal); L97.529 Non-pressure chronic ulcer of other part of left foot with unspecified severity; E78.5 Hyperlipidemia, unspecified; Z79.899 Other long term (current) drug therapy; I73.9 Peripheral vascular disease, unspecified; J44.9 Chronic obstructive pulmonary disease, unspecified; E11.9 Type 2 diabetes mellitus without complications; Z87.891 Personal history of nicotine dependence; Z89.422 Acquired absence of other left toe(s); Z79.84 Long term (current) use of oral hypoglycemic drugs; Z79.01 Long term (current) use of anticoagulants
CPT/HCPCS: 28810; 15275; J2250; J1100; J0690; J2405; J2001; J3010; J2704; J2371

== ENCOUNTER 2024-06-24 06:19 | Emergency (ER) | payer MEDICARE ==
[2024-06-24 06:35] VITALS: TEMP 97.7
--- NOTE | 2024-06-24 06:52 | ED ---
Fall HPI - General Chief Complaint: Fall Stated Complaint: Fall-hip pain Time Seen by Provider: 06/24/24 06:50 Source: patient Mode of arrival: EMS - History of Present Illness Initial Comments: 84-year-old male presented to the ER with a chief complaint of a fall. Patient states he was walking back to bed after using the bathroom at 4 AM and fell. He states it was dark in the room and he could not see the bed. He states he reached for the bed to balance but lost his balance causing him to fall landing on his bottom. He denies any head injury, loss of consciousness or blood thinner use. He denies any dizziness, lightheadedness, chest pain or shortness of breath prior to fall. Patient is complaining of left hip pain. He reports he was on the ground for approximately 2 hours. Denies any current dizziness, lightheadedness, chest pain, shortness of breath, abdominal pain, constipation/diarrhea, urinary complaints. No other injuries - Related Data Home Medications Medication Instructions Recorded Confirmed Simvastatin [Zocor] 20 mg PO QAM 07/29/16 02/12/24 glipiZIDE [Glucotrol] 5 mg PO TID-W/MEALS 07/29/16 02/12/24 Insulin Glargine,Hum.rec.anlog 60 unit SQ HS 11/13/19 02/12/24 [Franklyn Sinha] Aspirin EC [Ecotrin Low Dose] 81 mg PO HS 12/13/23 02/12/24 Donepezil [Aricept] 5 mg PO HS 12/13/23 02/12/24 Multivitamins, Thera [Multivitamin 1 tab PO QAM 01/19/24 02/12/24 (formulary)] cefTRIAXone [Rocephin] 2,000 mg IVPB Q24HR 02/12/24 02/12/24 Previous Rx's Medication Instructions Recorded metroNIDAZOLE [Flagyl] 500 mg PO TID #90 tab 12/19/23 Allergies Allergy/AdvReac Type Severity Reaction Status Date / Time No Known Allergies Allergy Verified 02/12/24 15:43 Review of Systems ROS Statement: Those systems with pertinent positive or pertinent negative responses have been documented in the HPI. ROS Other: All systems not noted in ROS Statement are negative. Past Medical History Past Medical History: Dementia, Diabetes Mellitus, Hyperlipidemia, Memory Impairment, Osteoarthritis (OA), Renal Disease, Vascular Disorder Additional Past Medical History / Comment(s): Ulcer L foot, cellulitis, IDDM type II, NEUROPATHY FEET, bilateral nephrolithiasis with surgery History of Any Multi-Drug Resistant Organisms: None Reported Past Surgical History: Orthopedic Surgery, Tonsillectomy Additional Past Surgical History / Comment(s): L foot 5th toe amputation/wound vac since removed two toes removed, PICC L upper arm, R FOOT SURGERY X2 (BONE REMOVED FOR INFECTION), CATARACTS . Past Anesthesia/Blood Transfusion Reactions: No Reported Reaction Past Psychological History: No Psychological Hx Reported Smoking Status: Former smoker Past Alcohol Use History: None Reported Past Drug Use History: None Reported - Past Family History Sister(s) Family Medical History: Cancer General Exam Limitations: no limitations General appearance: alert, in no apparent distress Head exam: Present: atraumatic, normocephalic, normal inspection Eye exam: Present: normal appearance, PERRL, EOMI. Absent: scleral icterus, conjunctival injection, periorbital swelling Pupils: Present: normal accommodation ENT exam: Present: normal exam, normal oropharynx, mucous membranes moist Neck exam: Present: normal inspection. Absent: tenderness, meningismus, lymphadenopathy Respiratory exam: Present: normal lung sounds bilaterally. Absent: respiratory distress, wheezes, rales, rhonchi, stridor Cardiovascular Exam: Present: regular rate, normal rhythm, normal heart sounds. Absent: systolic murmur, diastolic murmur, rubs, gallop, clicks GI/Abdominal exam: Present: soft, normal bowel sounds. Absent: distended, tenderness, guarding, rebound, rigid Extremities exam: Present: normal inspection, full ROM, normal capillary refill, other (Amputation of fifth left toe. Healed wound. No evidence of infection. 1+ dorsalis pedis bilaterally. 1+ radial pulses bilaterally. Negative leg roll bilaterally). Absent: tenderness, pedal edema, joint swelling, calf tenderness Back exam: Present: normal inspection Neurological exam: Present: alert, oriented X3, CN II-XII intact Skin exam: Present: warm, dry, intact, normal color. Absent: rash Course Vital Signs 06/24/24 06/24/24 06:26 08:00 Temperature 97.7 F Pulse Rate 67 66 Respiratory 16 20 Rate Blood Pressure 101/78 98/64 O2 Sat by Pulse 94 L 96 Oximetry - Reevaluation(s) Reevaluation #1: 06/24/24 09:56 This case with on-call orthopedics, Justin Graham who advised on transfer. Reevaluation #2: 06/24/24 09:56 Case also discussed with Dr. Conway at [facility] accepts transfer. Medical Decision Making - Medical Decision Making Was pt. sent in by a medical professional or institution (, PA, STATISTICIAN APPLIED, urgent care, hospital, or jail...) When possible be specific @ -No Did you speak to anyone other than the patient for history (EMS, parent, family, police, friend...)? What history was obtained from this source @ -EMS aiding in HPI. Did you review nursing and triage notes (agree or disagree)? Why? @ -I reviewed and agree with nursing and triage notes Were old charts reviewed (outside hosp., previous admission, EMS record, old EKG, old radiological studies, urgent care reports/EKG's, jail records)? Report findings @ -No old charts were reviewed Differential Diagnosis (chest pain, altered mental status, abdominal pain women, abdominal pain men, vaginal bleeding, weakness, fever, dyspnea, syncope, headache, dizziness, GI bleed, back pain, seizure, CVA, palpatations, mental health, musculoskeletal)? @ -Fracture, dislocation, contusion, hematoma, intracranial hemorrhage, concussion, abrasion, laceration this list does not like to be all-inclusive EKG interpreted by me (3pts min.). @ -As above X-rays interpreted by me (1pt min.). @ -Left hip AP pelvis x-ray concerning of an ischium fracture with extension into the acetabulum recommending CT. CT interpreted by me (1pt min.). @ -CT pelvis showing a comminuted intra-articular mildly displaced acetabular fracture U/S interpreted by me (1pt. min.). @ -None done What testing was considered but not performed or refused? (CT, X-rays, U/S, labs)? Why? @ -None What meds were considered but not given or refused? Why? @ -None Did you discuss the management of the patient with other professionals (professionals i.e. , BOBO, STATISTICIAN APPLIED, lab, RT, psych nurse, nephrology social worker, catalogue maker, teacher, loan service officer, correctional casework specialist)? Give summary @ -Yes case discussed with on-call orthopedics, Justin Graham PA-C, who advised on transfer to [facility] trauma orthopedics for further evaluation. Case also discussed with Tali Jeff Dr. Was smoking cessation discussed for >3mins.? @ -No Was critical care preformed (if so, how long)? @ -No Were there social determinants of health that impacted care today? How? (Homelessness, low income, unemployed, alcoholism, drug addiction, transportation, low edu. Level, literacy, decrease access to med. care, fpc, r ehab)? @ -No Was there de-escalation of care discussed even if they declined (Discuss DNR or withdrawal of care, Hospice)? DNR status @ -No What co-morbidities impacted this encounter? (DM, HTN, Smoking, COPD, CAD, Cancer, CVA, ARF, Chemo, Hep., AIDS, mental health diagnosis, sleep apnea, morbid obesity)? @ -Diabetes mellitus, hypertension, renal disease, vascular disease Was patient admitted / discharged? Hospital course, mention meds given and route, prescriptions, significant lab abnormalities, going to OR and other pertinent info. @ -Transferred. 84-year-old male presented to the ER with a chief complaint of a fall. History and physical exam completed. Vitals upon arrival within normal limits. Patient in no signs of acute distress and nontoxic-appearing. Patient AxO x 3, no acute neurological findings on exam. Bilateral upper and lower extremities neurovascular intact. There is tenderness to left groin. Left foot with amputation to fifth digit no wound or evidence of infection. Laboratory studies obtained showing a mild leukocytosis 12.0 with a left shift. Creatinine kinase 345. EKG showing a sinus rhythm with PACs. Inverted T waves in aVL which are chronic. No acute evidence of infarct or ischemia. X-ray initially completed of left hip AP pelvis showing an ischium fracture with possible extension into the acetabulum. CT obtained at that time. CT showing a comminuted intra-articular mildly displaced acetabular fracture. Patient received p.o. Tylenol and IV fluids in ER. Case discussed with on-call orthopedics, Justin Graham, advised on transfer to [facility]. Also discussed with Dr. Man Akhtar accept transfer. Patient will be transported via EMS to [facility] in stable condition for further evaluation and treatment. Patient is agreeable. Case discussed with ED attending, Dr. Handley. Undiagnosed new problem with uncertain prognosis? @ -No Drug Therapy requiring intensive monitoring for toxicity (Heparin, Nitro, Insulin, Cardizem)? @ -No Were any procedures done? @ -No Diagnosis/symptom? @ -Acetabular Fracture/fall Acute, or Chronic, or Acute on Chronic? @ -Acute Uncomplicated (without systemic symptoms) or Complicated (systemic symptoms)? @ -Complicated Side effects of treatment? @ -No Exacerbation, Progression, or Severe Exacerbation? @ -No Poses a threat to life or bodily function? How? (Chest pain, USA, NC, pneumonia, PE, COPD, DKA, ARF, appy, cholecystitis, CVA, Diverticulitis, Homicidal, Suicidal, threat to staff... and all critical care pts) @ -No - Lab Data Result diagrams: 06/24/24 06:49 06/24/24 06:49 Lab Results 06/24/24 06/24/24 Range/Units 06:49 06:49 WBC 12.0 H (3.8-10.6) k/uL RBC 4.25 L (4.30-5.90) m/uL Hgb 13.5 (13.0-17.5) gm/dL Hct 40.7 (39.0-53.0) % MCV 95.9 (80.0-100.0) fL MCH 31.8 (25.0-35.0) pg MCHC 33.1 (31.0-37.0) g/dL RDW 14.1 (11.5-15.5) % Plt Count 241 (150-450) k/uL MPV 7.9 Neutrophils % 80 % Lymphocytes % 12 % Monocytes % 5 % Eosinophils % 2 % Basophils % 1 % Neutrophils # 9.6 H (1.3-7.7) k/uL Lymphocytes # 1.4 (1.0-4.8) k/uL Monocytes # 0.6 (0-1.0) k/uL Eosinophils # 0.2 (0-0.7) k/uL Basophils # 0.1 (0-0.2) k/uL Sodium 140 (137-145) mmol/L Potassium 4.2 (3.5-5.1) mmol/L Chloride 109 H (98-107) mmol/L Carbon Dioxide 23 (22-30) mmol/L Anion Gap 8 mmol/L BUN 20 (9-20) mg/dL Creatinine 1.00 (0.66-1.25) mg/dL Est GFR (CKD-EPI)AfAm 81 (>60 ml/min/1.73 sqM) Est GFR (CKD-EPI)NonAf 70 (>60 ml/min/1.73 sqM) Glucose 101 H (74-99) mg/dL Calcium 9.4 (8.4-10.2) mg/dL Magnesium 2.0 (1.6-2.3) mg/dL Total Bilirubin 0.9 (0.2-1.3) mg/dL AST 47 (17-59) U/L ALT 32 (4-49) U/L Alkaline Phosphatase 73 (38-126) U/L Creatine Kinase 345 H (55-170) U/L Total Protein 6.7 (6.3-8.2) g/dL Albumin 4.2 (3.5-5.0) g/dL - EKG Data -: EKG Interpreted by Pr EKG Comments: EKG taken at 6: 29 showing a sinus rhythm with the occasional PAC. Inverted T waves in aVL. No acute ST segment changes. Ventricular rate 71, ND interval 194, QRS ration 52, QT/QTc 390/413. - Radiology Data Radiology results: report reviewed, image reviewed Disposition Clinical Impression: Fall, Left acetabular fracture Disposition: OTHER INSTITUTION NOT DEFINED Condition: Stable Referrals: Man Munoz DO [Primary Care Provider] - 1-2 days Time of Disposition: 09:58 - Out of Hospital Transfer - Req. Specs Out of Hospital Transfer - Requested Specifics: Other Emergency Center (trauma orthopedics)
[2024-06-24] MEDS: ACETAMINOPHEN TAB 325 MG TAB PO STA (06:53)
[2024-06-24 07:17] LABS: Basophils # (A) 0.1 k/uL (0-0.2); Basophils % (A) 1 %; Eosinophils # (A) 0.2 k/uL (0-0.7); Eosinophils % (A) 2 %; HCT 40.7 % (39.0-53.0); HGB 13.5 gm/dL (13.0-17.5); Lymphocytes # (A) 1.4 k/uL (1.0-4.8); Lymphocytes % (A) 12 %; MCH 31.8 pg (25.0-35.0); MCHC 33.1 g/dL (31.0-37.0); MCV 95.9 fL (80.0-100.0); Mean Platelet Volume 7.9; Monocytes # (A) 0.6 k/uL (0-1.0); Monocytes % (A) 5 %; Neutrophils # (A) 9.6 k/uL (1.3-7.7); Neutrophils % (A) 80 %; Platelet Count 241 k/uL (150-450); RBC 4.25 m/uL (4.30-5.90); RDW 14.1 % (11.5-15.5)
--- NOTE | 2024-06-24 07:18 | XR ---
EXAMINATION TYPE: XR Hip LT and AP Pelvis DATE OF EXAM: 06/24/2024 COMPARISON: Left hip and pelvis. HISTORY: Pain following fall TECHNIQUE: A single AP view of the pelvis is obtained. Two views of the left hip are obtained. FINDINGS: There is a mildly displaced fracture of the issue him of the left pubic bone likely involving the gt tabulum. The left femoral head and neck are intact. There are marked arteriovascular calcifications There is mild degeneration of the right hip but no acute trauma to the right hip. The sacrum, SI join ts and pubic symphysis are normal. IMPRESSION: Left pelvic fracture as described above.
[2024-06-24 07:35] LABS: ALT 32 U/L (4-49); African American GFR (CKD) 81 (>60 ml/min/1.73 sqM); Albumin 4.2 g/dL (3.5-5.0); Anion Gap 8 mmol/L; Blood Urea Nitrogen 20 mg/dL (9-20); Calcium 9.4 mg/dL (8.4-10.2); Carbon Dioxide 23 mmol/L (22-30); Chloride 109 mmol/L (98-107); Creatine Kinase 345 U/L (55-170); Glucose 101 mg/dL (74-99); Non-African American GFR(CKD) 70 (>60 ml/min/1.73 sqM); Sodium 140 mmol/L (137-145); Total Bilirubin 0.9 mg/dL (0.2-1.3); Total Protein 6.7 g/dL (6.3-8.2)
[2024-06-24 07:47] LABS: AST 47 U/L (17-59); Alkaline Phosphatase 73 U/L (38-126); Potassium 4.2 mmol/L (3.5-5.1)
[2024-06-24 08:03] VITALS: BP 98/64; PULSE 66; RESP 20
--- NOTE | 2024-06-24 09:21 | CT ---
EXAMINATION TYPE: CT pelvis wo con DATE OF EXAM: 06/24/2024 COMPARISON: None HISTORY: Left ischium fracture s/p fall CT DLP: 403.4 mGycm Automated exposure control for dose reduction was used. FINDINGS: There is a comminuted intra-articular minimally displaced fracture of the acetabulum involving the is chium, ilium and pubic bone. The left femoral head and neck are intact without evidence of fracture. There is no joint space widening. The periarticular soft tissues are normal IMPRESSION: COMMINUTED INTRA-ARTICULAR MILDLY DISPLACED ACETABULAR FRACTURES
[2024-06-24] MEDS ORDERED: SODIUM CHLORIDE 0.9% 1,000 ML IV STA (09:59)
== END 2024-06-24 10:15 | disposition other institution (70) ==
LOC: EC 06:19
CPT/HCPCS: 36415; 72192; 73502; 80053; 82550; 83735; 85025; 93005; 99284

== ENCOUNTER → 2024-12-25 | Outpatient (CLI) | payer MEDICARE ==
--- NOTE | 2024-12-25 15:08 | XR ---
EXAMINATION TYPE: XR Hip Complete RT DATE OF EXAM: 12/25/2024 2:53 PM INDICATION: Patient age:Male; 84 years old; Reason for study: S72.001A FRACTURE OF UNSP PART OF NECK OF RIGHT FE; PHH. pain COMPARISON: Right hip radiograph 12/05/2024 TECHNIQUE: The right hip was examined in the frontal and lateral projections . FINDINGS/IMPRESSION: Postsurgical changes with intramedullary oneyda and fixation screws involving the p roximal right femur spanning the previously seen fracture. Hardware appears intact. There is continue d displacement of the fractured lesser trochanter. No new fracture identified. No dislocation. Right lateral soft tissues skin preet. Vascular calcifications. [facility], , 12/25/2024 3:05 PM
== END | disposition home or self-care (01) ==
LOC: RADXRMAIN 14:30
PROVIDERS: ATTEND Orthopaedic Surgery
DX: S72.001A Fracture of unspecified part of neck of right femur, initial encounter for closed fracture (principal)
CPT/HCPCS: 73502